=== PATIENT | female | born 1975 | race Hispanic/Latino ===

== ENCOUNTER 2024-06-20 09:11 | Inpatient (IN) | payer BC ==
--- OUTSIDE RECORDS SUMMARY | 2024-06-20 09:14 | XMS REPORT | Continuity of Care Document ---
Author Name Unknown Address [address] [facility] [address] [place] [address] [facility] thconnect Address [address] [facility] [address] [place] [address] Care Team Providers Care Gear Repair Supervisor Name Role Phone Grant Niño MD Primary Care Physician [phone] JEMIMA HOFFMAN Attending Clinician Unavailable Grant Niño MD Attending Clinician [phone] GRANT NIÑO Attending Clinician Unavailable [facility] Attending Clinician Unafransisca glover Doctor Unassigned, Lexa Attending Clinician U navailable Mary Anne November Attending Clinician Unavailab MARY Ferrara Attending Clinician Unavailable Mary Tanner MD Attending Clinician [phone] ROCHELLE_NAVI_Naif_Martín Attending Clinician Unavail able Yazmin Disla Attending Clinician [phone] MARY TANNER Attending Clinician Unavail able Vaccine, Ang Db Cbc Fam Attending Clinician Unav ailable Lab, Ang - Db Attending Clinician Unavailable Yazmin Disla Attending Clinician UnavailLisa Lutz Attending Clinician LISA MELENDEZ Attending Clinician Unavailable RADIOLOGY Attending Clinician Unavailable MOLLY REYES Attending Clinician Unavailable ADELINA BENEDICT Attending Clinician Unavailab le JESSICA, MARY Admitting Clinician Unavailable GC_S[facility]_Naif_H Admitting Clinician Unavail able Yazmin Disla Admitting Clinician UnavailADELINA Mojica Admitting Clinician Unavailab le Payers Payer Name Policy Type Policy Number Effective Date Expirati on Date Source [employer] PPO [id number] 2015 00:00:00 [place] [id number] 2014 00:00:00 [place] [id number] 2015 00:00:00 Problems Condition Name Condition Details Condition Category Status Onset Date Resolution Date Last Treatment Date Treating Clinician Comments Source Fatty liver Fatty liver Disease Active 2018-08 00:00: 00 [facility] Anemia Anemia Disease Active 2018-08 00:00: 00 [facility] Right sided abdominal pain Right sided abdominal pain Disease Active 2015-08 00:00: 00 [facility] Acute right-side d low back pain without sciatica Acute right-side d low back pain without sciatica Disease Active 2015-08 00:00: 00 [facility] Lower extremity pain, right Lower extremity pain, right Disease Active 2015-08 00:00: 00 [facility] Myalgia Myalgia Disease Active 2015-08 00:00: 00 [facility] Axillary pain, right Axillary pain, right Disease Active 2015-08 00:00: 00 [facility] Numbness Numbness Disease Active 2015-08 00:00: 00 [facility] Type 2 diabetes mellitus without complicati on, without long-term current use of insulin Type 2 diabetes mellitus without complicati on, without long-term current use of insulin Disease Active 2015-08 00:00: 00 [facility] Blood in stool Blood in stool Disease Active 05-19 00:00: 00 [facility] Epigastric pain Epigastric pain Disease Active 05-19 00:00: 00 [facility] Type 2 diabetes mellitus without complicati on Type 2 diabetes mellitus without complicati on Disease Active 2014-08 00:00: 00 [facility] Reflux esophagiti s Reflux esophagiti s Disease Active 2014-08 00:00: 00 [facility] No known active problems No known active problems Disease [facility] Allergies, Adverse Reactions, Alerts Allergy Name Allergy Type Status Severity Reaction(s) Onset Date Inactive Date Treating Clinician Comments Source Penicill ins DA Active SV SHORTNESS OF BREATH, RASH AND "BLOOD VESSELS POP IN EYES" 2020-08 00:00: 00 [facility] penicill amine DA Active SV SHORTNESS OF BREATH, RASH AND "BLOOD VESSELS POP IN EYES" 2020-08 00:00: 00 [facility] Penicill ins Propensi ty to adverse reaction s Active Unknown - See comments 2014-08 00:00: 00 SOB, swelling [facility] PENICILL INS Drug Class Active Unknown-Cmnt 2014-08 00:00: 00 [facility] Penicill ins Propensi ty to adverse reaction s Active Other - See comments 2014-08 00:00: 00 SOB, swelling [facility] Penicill ins Propensi ty to adverse reaction s Active Other 2014-08 00:00: 00 SOB, swelling [facility] Social History Social Habit Start Date Stop Date Quantity Comments Source [facility] History of tobacco use Cigarette Smoker [facility] History of Social function 2023-07-26 00:00:00 2023-07-26 00:00:00 [facility] Tobacco use and exposure 2023-07-26 00:00:00 2023-07-26 00:00:00 Smokeless tobacco non-user [facility] Tobacco Comment 2023-07-26 00:00:00 2023-07-26 00:00:00 socially [facility] Exposure to SARS-CoV-2 (event) 2022-03-28 00:00:00 2022-04-07 16:10:00 Not sure [facility] Alcohol intake 2021-09-27 00:00:00 2021-09-27 00:00:00 .14 /d [facility] Sex Assigned At 1975 00:00:00 1975 00:00:00 [facility] Smoking Status Start Date Stop Date Source Ex-smoker 2023-07-26 00:00:00 2023-07-26 00:00:00 [facility] Smokes tobacco daily 2021-05-25 00:00:00 [facility] Occasional tobacco smoker 2019-07-19 00:00:00 [facility] Medications Ordered Medication Name Filled Medication Name Start Date Stop Date Current Medication? Ordering Clinician Indication Dosage Frequency Signature (SIG) Comments Components Source terbinafine HCL 250 mg tablet 2022-08 00:00: 00 Yes [id number] 250mg Take 1 tablet by mouth in the morning. [facility] 0.01% (0.1 mg/gram) vaginal cream Insert 0.5 g twice a week by vaginal route at bedtime. estradiol 0.01% (0.1 mg/gram) vaginal cream Insert 0.5 g twice a week by vaginal route at bedtime. No .5g Q3.5D estradiol 0.01% (0.1 mg/gram) vaginal cream Insert 0.5 g twice a week by vaginal route at bedtime. [facility] fluconazole 150 mg tablet TAKE 1 TABLET BY MOUTH EVERY DAY FOR 1 DAY fluconazole 150 mg tablet TAKE 1 TABLET BY MOUTH EVERY DAY FOR 1 DAY No fluconazol e 150 mg tablet TAKE 1 TABLET BY MOUTH EVERY DAY FOR [address] [facility] gabapentin 300 mg capsule TAKE 1 CAPSULE BY MOUTH THREE TIMES A DAY gabapentin 300 mg capsule TAKE 1 CAPSULE BY MOUTH THREE TIMES A DAY No gabapentin 300 mg capsule TAKE 1 CAPSULE BY MOUTH THREE TIMES A DAY [facility] gi-(pruritu s 1)[]hydroco rt2.5%/ lido5% APPLY 1 to 2 grams TO AFFECTED AREA 3 to 4 times A day gi-(pruritu s 1)[]hydroco rt2.5%/ lido5% APPLY 1 to 2 grams TO AFFECTED AREA 3 to 4 times A day No gi-(prurit us 1)[]hydroc ort2.5%/ lido5% APPLY 1 to 2 grams TO AFFECTED AREA 3 to 4 times A day [facility] hydrocodone 10 mg-acetamin ophen 325 mg tablet TAKE 1 TABLET BY MOUTH EVERY DAY hydrocodone 10 mg-acetamin ophen 325 mg tablet TAKE 1 TABLET BY MOUTH EVERY DAY No hydrocodon e 10 mg-acetami nophen 325 mg tablet TAKE 1 TABLET BY MOUTH EVERY DAY [facility] hydrocodone 5 mg-acetamin ophen 325 mg tablet TAKE 1 TABLET BY MOUTH EVERY 4 HOURS NEEDED hydrocodone 5 mg-acetamin ophen 325 mg tablet TAKE 1 TABLET BY MOUTH EVERY 4 HOURS NEEDED No hydrocodon e 5 mg-acetami nophen 325 mg tablet TAKE 1 TABLET BY MOUTH EVERY [address] [facility] ketorolac 10 mg tablet PLEASE SEE ATTACHED FOR DETAILED DIRECTIONS ketorolac 10 mg tablet PLEASE SEE ATTACHED FOR DETAILED DIRECTIONS No ketorolac 10 mg tablet PLEASE SEE ATTACHED FOR DETAILED DIRECTIONS [facility] methocarbam ol 500 mg tablet TAKE 1 TABLET BY MOUTH THREE TIMES A DAY FOR 10 DAYS methocarbam ol 500 mg tablet TAKE 1 TABLET BY MOUTH THREE TIMES A DAY FOR 10 DAYS No methocarba mol 500 mg tablet TAKE 1 TABLET BY MOUTH THREE TIMES A DAY FOR [address] [facility] nitrofurant oin monohydrate /macrocryst als 100 mg capsule TAKE 1 CAPSULE BY MOUTH EVERY 12 HOURS FOR 7 DAYS nitrofurant oin monohydrate /macrocryst als 100 mg capsule TAKE 1 CAPSULE BY MOUTH EVERY 12 HOURS FOR 7 DAYS No nitrofuran toin monohydrat e/macrocry stals 100 mg capsule TAKE 1 CAPSULE BY MOUTH EVERY 12 HOURS FOR [address] [facility] ciprofloxac in 500 mg tablet TAKE ONE TABLET BY MOUTH TWICE DAILY FOR 10 DAYS ciprofloxac in 500 mg tablet TAKE ONE TABLET BY MOUTH TWICE DAILY FOR 10 DAYS No ciprofloxa marco 500 mg tablet TAKE ONE TABLET BY MOUTH TWICE DAILY FOR [address] [facility] Clenpiq 10 mg-3.5 gram-12 gram/160 mL oral solution TAKE BY MOUTH DIRECTED Clenpiq 10 mg-3.5 gram-12 gram/160 mL oral solution TAKE BY MOUTH DIRECTED No Clenpiq 10 mg-3.5 gram-12 gram/160 mL oral solution TAKE BY MOUTH DIRECTED [facility] diazepam 5 mg tablet TAKE 1 TABLET BY MOUTH EVERY DAY NEEDED FOR ANXIETY diazepam 5 mg tablet TAKE 1 TABLET BY MOUTH EVERY DAY NEEDED FOR ANXIETY No diazepam 5 mg tablet TAKE 1 TABLET BY MOUTH EVERY DAY NEEDED FOR ANXIETY [facility] docusate sodium 100 mg capsule TAKE 1 CAPSULE BY MOUTH EVERY 12 HOURS docusate sodium 100 mg capsule TAKE 1 CAPSULE BY MOUTH EVERY 12 HOURS No docusate sodium 100 mg capsule TAKE 1 CAPSULE BY MOUTH EVERY 12 HOURS [facility] Santyl 250 unit/gram topical ointment APPLY TOPICALLY TO THE AFFECTED AREA ONCE DAILY. Santyl 250 unit/gram topical ointment APPLY TOPICALLY TO THE AFFECTED AREA ONCE DAILY. No Santyl 250 unit/gram topical ointment APPLY TOPICALLY TO THE AFFECTED AREA ONCE DAILY. [facility] sulfamethox azole 800 mg-trimetho prim 160 mg tablet TAKE 1 TABLET BY MOUTH TWICE DAILY sulfamethox azole 800 mg-trimetho prim 160 mg tablet TAKE 1 TABLET BY MOUTH TWICE DAILY No sulfametho xazole 800 mg-trimeth oprim 160 mg tablet TAKE 1 TABLET BY MOUTH TWICE DAILY [facility] Clenpiq 10 mg-3.5 gram-12 gram/160 mL oral solution TAKE BY MOUTH DIRECTED Clenpiq 10 mg-3.5 gram-12 gram/160 mL oral solution TAKE BY MOUTH DIRECTED No Clenpiq 10 mg-3.5 gram-12 gram/160 mL oral solution TAKE BY MOUTH DIRECTED [facility] gi-(pruritu s 1)[]hydroco rt2.5%/ lido5% APPLY 1 to 2 grams TO AFFECTED AREA 3 to 4 times A day gi-(pruritu s 1)[]hydroco rt2.5%/ lido5% APPLY 1 to 2 grams TO AFFECTED AREA 3 to 4 times A day No gi-(prurit us 1)[]hydroc ort2.5%/ lido5% APPLY 1 to 2 grams TO AFFECTED AREA 3 to 4 times A day [facility] hydrocodone 10 mg-acetamin ophen 325 mg tablet TAKE 1 TABLET BY MOUTH EVERY DAY hydrocodone 10 mg-acetamin ophen 325 mg tablet TAKE 1 TABLET BY MOUTH EVERY DAY No hydrocodon e 10 mg-acetami nophen 325 mg tablet TAKE 1 TABLET BY MOUTH EVERY DAY [facility] Colace 100 mg capsule Take 1 capsule every 12 hours by oral route. Colace 100 mg capsule Take 1 capsule every 12 hours by oral route. No 1capsul e(s) Q12H Colace 100 mg capsule Take 1 capsule every 12 hours by oral route. [facility] fluconazole 150 mg tablet TAKE 1 TABLET BY MOUTH EVERY DAY FOR 1 DAY fluconazole 150 mg tablet TAKE 1 TABLET BY MOUTH EVERY DAY FOR 1 DAY No fluconazol e 150 mg tablet TAKE 1 TABLET BY MOUTH EVERY DAY FOR 1 DAY [facility] gabapentin 300 mg capsule TAKE 1 CAPSULE BY MOUTH THREE TIMES DAILY FOR 10 DAYS gabapentin 300 mg capsule TAKE 1 CAPSULE BY MOUTH THREE TIMES DAILY FOR 10 DAYS No gabapentin 300 mg capsule TAKE 1 CAPSULE BY MOUTH THREE TIMES DAILY FOR 10 DAYS [facility] hydrocodone 5 mg-acetamin ophen 325 mg tablet TAKE 1 TABLET BY MOUTH EVERY 4 HOURS NEEDED hydrocodone 5 mg-acetamin ophen 325 mg tablet TAKE 1 TABLET BY MOUTH EVERY 4 HOURS NEEDED No hydrocodon e 5 mg-acetami nophen 325 mg tablet TAKE 1 TABLET BY MOUTH EVERY 4 HOURS NEEDED [facility] nitrofurant oin monohydrate /macrocryst als 100 mg capsule TAKE 1 CAPSULE BY MOUTH EVERY 12 HOURS FOR 7 DAYS nitrofurant oin monohydrate /macrocryst als 100 mg capsule TAKE 1 CAPSULE BY MOUTH EVERY 12 HOURS FOR 7 DAYS No nitrofuran toin monohydrat e/macrocry stals 100 mg capsule TAKE 1 CAPSULE BY MOUTH EVERY 12 HOURS FOR 7 DAYS [facility] Colace 100 mg capsule Take 1 capsule every 12 hours by oral route. Colace 100 mg capsule Take 1 capsule every 12 hours by oral route. No 1capsul e(s) Q12H Colace 100 mg capsule Take 1 capsule every [address] [facility] Immunizations Ordered Immunization Name Filled Immunization Name Date Status Comments Source SARS-COV-2 COVID-19 PFIZER JADE-SUCROSE VACCINE (HICKS TOP) 2022-04-07 00:00:00 Completed [facility] SARS-COV-2 COVID-19 PFIZER JADE-SUCROSE VACCINE (HICKS TOP) 2022-04-07 00:00:00 Completed [facility] SARS-COV-2 COVID-19 PFIZER JADE-SUCROSE VACCINE (HICKS TOP) 2022-03-15 00:00:00 Completed [facility] SARS-COV-2 COVID-19 PFIZER JADE-SUCROSE VACCINE (HICKS TOP) 2022-03-15 00:00:00 Completed [facility] SARS-COV-2 COVID-19 PFIZER JADE-SUCROSE VACCINE (HICKS TOP) 2022-03-15 00:00:00 Completed [facility] TDAP 2021-08-03 00:00:00 Completed [facility] TDAP 2021-08-03 00:00:00 Completed [facility] TDAP 2021-08-03 00:00:00 Completed [facility] TDAP 2021-08-03 00:00:00 Completed [facility] TDAP Unknown Completed [facility] SARS-COV-2 COVID-19 PFIZER JADE-SUCROSE VACCINE (HICKS TOP) Unknown Completed [facility] TDAP Unknown Completed [facility] SARS-COV-2 COVID-19 PFIZER JADE-SUCROSE VACCINE (HICKS TOP) Unknown Completed [facility] TDAP Unknown Completed [facility] SARS-COV-2 COVID-19 PFIZER JADE-SUCROSE VACCINE (HICKS TOP) Unknown Completed [facility] Vital Signs Vital Name Observation Time Observation Value Comments S our Systolic blood pressure 2023-07-26 19:25:00 122 mm[Hg] [facility] Diastolic blood pressure 2023-07-26 19:25:00 82 mm[Hg] [facility] Heart rate 2023-07-26 19:25:00 79 /min [facility] Body height 2023-07-26 19:25:00 154.9 cm [facility] Body weight 2023-07-26 19:25:00 76.4 kg [facility] BMI 2023-07-26 19:25:00 31.82 kg/m2 [facility] Oxygen saturation in Arterial blood by Pulse oximetry 2023-07-26 19:25:00 97 /min [facility] Height 2022-04-26 00:00:00 62 [in_i] [facility] BMI (Body Mass Index) 2022-04-26 00:00:00 25.2 kg/m2 [facility] Body Weight 2022-04-26 00:00:00 138 [lb_av] [facility] Systolic blood pressure 2022-02-09 17:49:00 114 mm[Hg] [facility] Diastolic blood pressure 2022-02-09 17:49:00 73 mm[Hg] [facility] Heart rate 2022-02-09 17:49:00 91 /min [facility] Body height 2022-02-09 17:49:00 154.9 cm [facility] Body weight 2022-02-09 17:49:00 65.998 kg [facility] BMI 2022-02-09 17:49:00 27.49 kg/m2 [facility] BP Diastolic 2021-11-08 00:00:00 77 mm[Hg] [facility] Height 2021-11-08 00:00:00 62 [in_i] [facility] BMI (Body Mass Index) 2021-11-08 00:00:00 26.7 kg/m2 [facility] BP Systolic 2021-11-08 00:00:00 122 mm[Hg] [facility] Body Weight 2021-11-08 00:00:00 145.8 [lb_av] [facility] BP Diastolic 2021-10-13 00:00:00 86 mm[Hg] [facility] Height 2021-10-13 00:00:00 62 [in_i] [facility] BMI (Body Mass Index) 2021-10-13 00:00:00 26.2 kg/m2 [facility] BP Systolic 2021-10-13 00:00:00 132 mm[Hg] [facility] Body Weight 2021-10-13 00:00:00 143 [lb_av] [facility] BP Diastolic 2021-09-01 00:00:00 75 mm[Hg] [facility] BP Systolic 2021-09-01 00:00:00 111 mm[Hg] [facility] Body Weight 2021-09-01 00:00:00 144 [lb_av] [facility] Systolic blood pressure 2021-05-25 19:16:00 110 mm[Hg] [facility] Diastolic blood pressure 2021-05-25 19:16:00 77 mm[Hg] [facility] Heart rate 2021-05-25 19:16:00 70 /min [facility] Body temperature 2021-05-25 19:16:00 36.5 Matilda [facility] Body height 2021-05-25 19:16:00 154.9 [facility] Body weight 2021-05-25 19:16:00 64[facility]864 [facility] BMI 2021-05-25 19:16:00 27.02 kg[facility]m2 [facility] Procedures Procedure Date / Time Performed Performing Clinicia n Source ASSIGNMENT OF BENEFITS 2023-07-25 16:44:37 Docto r Unassigned, Lexa [facility] US ABDOMEN LIMITED 2022-05-05 22:30:00 [facility] SARS-COV-2 COVID-19 VACCINE 12 YRS+,0.3ML,IM (PFIZER - HICKS TOP) 2022-04-07 21:43:05 Doctor Unassigned, Lexa [facility] SARS-COV-2 COVID-19 VACCINE 12 YRS+,0.3ML,IM (PFIZER - HICKS TOP) 2022-03-15 21:45:05 Doctor Unassigned, Lexa [facility] Plan of Care Planned Activity Planned Date Details Comments Source Diagnostic Test Pending 2021-09-01 00:00:00 culture, urine [code = culture, urine] [facility] Diagnostic Test Pending 2021-09-01 00:00:00 urinalysis, complete [code = urinalysis, complete] [facility] Encounters Start Date/Time End Date/Time Encounter Type Admission Type Attending [facility] Care Facility Care Department Encounter ID Source 2022-06-14 07:35:00 [id number] 2022-01-11 10:08:06 [facility] [id number] [facility] 2021-10-21 13:54:01 Outpatient [facility] [id number] [facility] 2021-09-24 10:13:00 [facility] [id number] [facility] 2021-09-20 11:56:25 Outpatient YASMIN JEMIMA [facility] [id number] [facility] 2021-09-01 09:36:20 Outpatient YASMIN JEMIMA [facility] [id number] [facility] 2021-07-06 16:33:42 Outpatient JEMIMA HOFFMAN [facility] [id number] [facility] 2021-04-28 15:52:36 Outpatient JEMIMA HOFFMAN [facility] [id number] [facility] 2024-01-03 07:30:00 2024-01-03 07:30:00 Outpatient R [facility] [id number] [facility] 2024-01-01 07:45:00 2024-01-01 07:45:00 Outpatient R [facility] [id number] [facility] 2023-07-26 13:30:00 2023-07-26 14:00:00 Office Visit Grant Niño [facility] SHANIQUE [facility] [id number]..840.114 [id number] [id number] [id number] [facility] 2023-07-26 13:30:00 2023-07-26 13:30:00 Outpatient R GRANT NIÑO [facility] [id number] [facility] 2023-07-25 10:30:00 2023-07-25 10:30:00 Outpatient R ABNER [facility] [id number] [facility] 2023-07-25 00:00:00 2023-07-25 00:00:00 Orders Only Doctor Unassigned, Lexa [facility] [id number] 350.1.13.10 [id number] [id number] [facility] 2023-07-13 00:00:00 2023-07-13 00:00:00 Pre Visit Outreach [facility] [place] 1..840.114 350.1.13.10 [id number] [id number] [facility] 2022-05-05 16:48:00 2022-05-05 23:59:00 Outpatient R MARY TANNER [facility] [id number] [facility] 2022-05-05 16:48:00 2022-05-05 23:59:00 Hospital Encounter Mary Tanner [facility] [id number] 350.1.13.10 [id number] [id number] [facility] 2022-04-26 00:00:00 2022-04-26 00:00:00 Outpatient [facility] _Naif_H [facility] [id number] [facility] 2022-04-26 00:00:00 2022-04-26 00:00:00 Yazmin Disla MD: [address], [address], [place] [address] , Ph. [phone] [facility] - GC_PAMELLAPRRosenda _[facility] Office* [id number] [facility] 2022-04-26 00:00:00 2022-04-26 00:00:00 Outpatient Yazmin Disla [facility] [id number] 2022-04-21 10:04:00 2022-04-21 10:04:00 [facility] [id number] [facility] 2022-03-15 12:15:00 2022-04-13 23:59:00 [facility] [id number] 2022-04-07 16:20:00 2022-04-07 16:30:00 Imm/Inj Visit Vaccine, Ang Db Cbc Grant Claudio [facility] [id number] 350.1.13.10 [id number] [id number] [facility] 2022-04-07 16:20:00 2022-04-07 16:20:00 Outpatient GRANT VERAS [facility] [id number] [facility] 2022-03-15 16:20:00 2022-03-15 16:30:00 Imm/Inj Visit Vaccine, Ang Db Cbc [facility] [id number] 350.1.13.10 [id number] [id number] [facility] 2022-03-15 16:20:00 2022-03-15 16:20:00 Outpatient R GRANT NÑIO [facility] [id number] [facility] 2022-02-09 12:45:00 2022-02-09 13:00:00 Office Visit Madi [facility] JERED?[facility] [id number] 350.1.13.10 4.2.7.2.686 [id number] [facility] 2022-02-09 12:45:00 2022-02-09 12:45:00 Outpatient R GRANT NIÑO [facility] [id number] [facility] 2022-01-19 00:00:00 2022-01-19 00:00:00 Telephone Madi [facility] JERED?[facility] [id number] 350.1.13.10 4.2.7.2.686 [id number] [facility] 2021-12-23 00:00:00 2021-12-23 00:00:00 Letter (Out) [facility] [id number] 350.1.13.10 [id number] [id number] [facility] 2021-12-23 00:00:00 2021-12-23 00:00:00 Patient Secure Msg [facility] [id number] 350.1.13.10 4.2.7.2.686 [id number] [facility] 2021-12-22 07:45:00 2021-12-22 08:00:00 Technical Product Manager Visit Lab, Shukri - Eddie Niño Grant [facility] [id number] 350.1.13.10 [id number] [id number] [facility] 2021-12-22 07:45:00 2021-12-22 07:45:00 Outpatient GRANT VERAS [facility] [id number] [facility] 2021-12-22 07:45:00 2021-12-22 07:45:00 Outpatient GRANT VERAS [facility] [id number] [facility] 2021-12-21 16:15:00 2021-12-21 16:15:00 Outpatient GRANT VERAS [facility] [id number] [facility] 2021-12-21 09:15:00 2021-12-21 09:15:00 Outpatient GRANT VERAS [facility] [id number] [facility] 2021-12-21 08:15:00 2021-12-21 09:04:44 Office Visit Madi Grant [facility] [id number] 350.1.13.10 [id number] [id number] [facility] 2021-12-21 08:15:00 2021-12-21 09:04:44 Outpatient GRANT VERAS [facility] [id number] [facility] 2021-12-21 08:15:00 2021-12-21 08:15:00 Outpatient GRANT VERAS [facility] [id number] [facility] 2021-12-21 07:15:00 2021-12-21 07:15:00 Outpatient GRANT VERAS [facility] [id number] [facility] 2021-11-10 00:00:00 2021-11-10 00:00:00 Outpatient [facility] _Fisher_H PRIV PRIV [id number] [facility] [facility] 2021-11-09 11:37:00 2021-11-09 11:37:00 Outpatient [facility] _Fisher_H PRIV PRIV [id number] [facility] 2021-11-08 12:46:00 2021-11-08 12:46:00 Outpatient [facility] _Fisher_H PRIV PRIV [id number] [facility] 2021-11-08 00:00:00 2021-11-08 00:00:00 Outpatient Lily Dislasridevi Maki PRIV PRIV [id number] 2021-11-08 00:00:00 2021-11-08 00:00:00 Yazmin Disla MD: [address], [address], [place] [address] , Ph. [phone] [facility] - [facility] _[place] Office* [id number] [facility] 2021-11-05 01:41:00 2021-11-05 01:41:00 Outpatient [facility] _Fisher_H PRIV PRIV [id number] [facility] 2021-10-14 10:16:00 2021-10-14 10:16:00 Outpatient [facility] _Fisher_H PRIV PRIV [id number] [facility] 2021-10-13 03:55:00 2021-10-13 03:55:00 Outpatient [facility] _Fisher_H PRIV PRIV [id number] [facility] 2021-10-13 00:00:00 2021-10-13 00:00:00 Outpatient Lily Dislasridevi Maki PRIV PRIV [id number] 2021-10-13 00:00:00 2021-10-13 00:00:00 Yazmin Disla MD: [address], [address], [place] [address] , Ph. [phone] [facility] - [facility] _[place] Office* [id number] [facility] 2021-10-11 04:19:00 2021-10-11 04:19:00 Outpatient [facility] _Thea [facility] PRIV [id number] [facility] 2021-09-23 09:45:00 2021-09-23 09:45:00 Outpatient GRANT VERAS [facility] [id number] [facility] 2021-09-20 11:15:00 2021-09-20 11:56:28 Office Visit Jemima Hoffman [facility] 2 1.2.840.114 350.1.13.58 9.2.7.2.686 [id number] [facility] 2021-09-03 15:45:00 2021-09-03 16:36:26 Office Visit Jemima Hoffman [facility] 2 1.2.840.114 350.1.13.58 9.2.7.2.686 [id number] [facility] 2021-09-02 03:38:00 2021-09-02 03:38:00 Outpatient [facility] _Thea [facility] PRIV [id number] [facility] 2021-09-01 03:22:00 2021-09-01 03:22:00 Outpatient [facility] _Thea [facility] PRIV [id number] [facility] 2021-09-01 00:00:00 2021-09-01 00:00:00 Outpatient Yazmin Disla [facility] PRIV [id number] 2021-09-01 00:00:00 2021-09-01 00:00:00 Yazmin Disla MD: [address], [address], [place] [address] , Ph. [phone] [facility] - [facility] _[place] Office* [id number] [facility] 2021-08-23 12:45:00 2021-08-23 12:45:00 Outpatient Mushtaq NIÑO [facility] [id number] [facility] 2021-08-18 12:14:00 2021-08-19 13:03:00 Inpatient Yazmin Douglas [facility] MED[facility]01 [id number] [facility] 2021-08-03 09:24:21 2021-08-03 10:53:22 Technical Product Manager Visit Lab, Shukri Melendez LisaOn license of [facility] JERED?CECILIA [facility] 1..840.114 350.1.13.10 4.2.7.2.686 [id number] [facility] 2021-08-03 08:00:44 2021-08-03 10:53:06 [facility] 1..840.114 350.1.13.10 4.2.7.2.686 [id number] [facility] 2021-08-03 08:00:00 2021-08-03 10:53:06 Outpatient R [facility] [id number] [facility] 2021-08-03 08:00:00 2021-08-03 10:53:06 Outpatient Mushtaq [facility]Z [facility] [id number] [facility] 2021-08-03 09:24:21 2021-08-03 09:39:21 Technical Product Manager Visit Lab, [facility] 1..840.114 350.1.13.10 4.2.7.2.686 [id number] [facility] 2021-08-03 00:00:00 2021-08-03 00:00:00 Orders Only Doctor Unassigned, Lexa [facility] 1.284.114 350.1.13.10 4.2.7.2.686 [id number] [facility] 2021-07-27 11:24:00 2021-07-27 11:24:00 Outpatient [facility] _Naif_H [facility] [id number] [facility] 2021-07-26 03:03:00 2021-07-26 03:03:00 Outpatient [facility] [id number] [facility] 2021-07-26 00:00:00 2021-07-26 00:00:00 Yazmin Disla MD: [address], [address], [place] [address] , Ph. [phone] [facility] - [facility] _[place] Office* [id number] [facility] 2021-07-26 00:00:00 2021-07-26 00:00:00 Outpatient Yazmin Disla [facility] [id number] 2021-07-06 14:30:16 2021-07-06 16:33:08 Office Visit Jemima Hoffman [facility] 1..840.114 350.1.13.58 9.2.7.2.686 [id number] [facility] 2021-06-28 08:30:00 2021-06-28 08:30:00 Outpatient GRANT VERAS [facility] [id number] [facility] 2021-06-21 00:00:00 2021-06-21 00:00:00 Orders Only Doctor Unassigned, Lexa [facility] 1..840.114 350.1.13.10 4.2.7.2.686 [id number] [facility] 2021-05-26 00:00:00 2021-05-26 00:00:00 Orders Only Doctor Unassigned, Lexa [facility] 1..840.114 350.1.13.10 4.2.7.2.686 [id number] [facility] 2021-05-25 14:05:02 2021-05-25 15:12:37 Office Visit Jemima Hoffman [place] 1..840.114 350.1.13.58 9.2.7.2.686 [id number] [facility] 2021-04-28 00:00:00 2021-04-28 00:00:00 [facility] 1..840.114 350.1.13.10 4.2.7.2.686 [id number] [facility] 2021-04-26 12:06:06 2021-04-26 12:21:06 Technical Product Manager [facility] 1..840.114 350.1.13.10 4.2.7.2.686 [id number] [facility] 2021-04-26 12:00:00 2021-04-26 12:00:00 Outpatient R [facility] [id number] [facility] 2021-04-26 00:00:00 2021-04-26 00:00:00 Patient Secure Msg Doctor Unassigned, Lexa [facility] 1..840.114 350.1.13.10 4.2.7.2.686 [id number] [facility] 2021-04-08 00:00:00 2021-04-08 00:00:00 Outpatient LISA CRUZ [facility] [id number] [facility] 2021-04-05 13:30:00 2021-04-05 13:30:00 Outpatient LISA CRUZ [facility] [id number] [facility] 2021-03-08 00:00:00 2021-03-08 00:00:00 Outpatient R RADIOLOGY [facility] [id number] [facility] 2021-03-01 00:00:00 2021-03-01 00:00:00 Outpatient R RADIOLOGY [facility] [id number] [facility] 2020-12-17 10:00:00 2020-12-17 10:00:00 Outpatient R JOSE NIÑOONY [facility] [id number] [facility] 2020-07-30 15:00:00 2020-07-30 15:00:00 Outpatient R REYES, LUCY [facility] [id number] [facility] 2020-07-22 08:00:00 2020-07-22 08:00:00 Outpatient Mushtaq MADI [facility] [id number] [facility] 2020-07-10 09:00:00 2020-07-10 09:00:00 Outpatient GRANT VERAS [facility] [id number] [facility] 2020-07-08 14:30:00 2020-07-08 14:30:00 Outpatient R ABNER KAISER [facility] [id number] [facility] 2020-03-05 17:00:00 2020-03-05 17:00:00 Outpatient R [facility] [id number] [facility] 2019-11-12 06:23:00 2019-11-13 18:07:00 Inpatient ADELINA BENEDICT TW [facility] 7501 MHT[facility] Results Test Description Test Time Test Comments Results Result Co mments Source [facility] Medical[facility]inal[facility] complete panel - [id number] 00:00:00* Test Item Value Reference Range Interpretation Comme nts Specific gravity of Urine (test code = 2965-2) 1.031 1.003-1.030 H pH of Urine (test code = 2756-5) 5.5 5.0-8.0 Protein [Presence] in Urine by Test strip (test code = 78068-5) negative negative Glucose [Presence] in Urine by Test strip (test code = 62258-4) negative negative Ketones [Presence] in Urine by Test strip (test code = 2514-8) trace negative A Urobilinogen [Units/volume] in Urine by Test strip (test code = 49824-6) 1.0 mg/dL 0.2-1.0 Bilirubin.total [Presence] i n Urine by Test strip (test code = 5770-3) small negative A Hemoglobin [Presence] in Uri ne by Test strip (test code = 5794-3) negative negative Nitrite [Presence] in Urine by Test strip (test code = 5802-4) negative negative Crystals [type] in Urine sediment by Light microscopy (test code = 5782-8) none none Leukocytes [#/area] in Urine sediment by Microscopy high power field (test code = 5821-4) 0-4 0-4 Erythrocytes [#/area] in Uri ne sediment by Microscopy high power field (test code = 21832-9) none seen none seen RBC casts [Presence] in Urin e sediment by Light microscopy (test code = 43522-2) none seen 0-1 Hyaline casts [Presence] in Urine sediment by Light microscopy (test code = 64638-7) 0-4 0-4 Epithelial cells [Presence] in Urine sediment by Light microscopy (test code = 45609-2) few none-few Granular casts [Presence] in Urine sediment by Light microscopy (test code = 59155-5) none seen 0-1 Bacteria [Presence] in Urine sediment by Light microscopy (test code = 61232-9) few none-few Leukocyte esterase [Presence ] in Urine by Test strip (test code = 5799-2) negative negative Color of Urine (test code = 5778-6) yellow yellow, straw, chris Character of Urine (test cod e = 02692-0) clear clear [id number] 16:54:00* Test Item Value Reference Range Interpretation Comme nts SURGICAL (test code = SR) R UN DATE: 08/25/21 [facility] PAGE 1 RUN TIME: 1654 Specimen Inquiry RUN USER: INTERFACE P ATIENT: ANA DIXON [facility]: [id number] AGE/SX: 46/F [facility] RE08[facility]21REG DR: Yazmin Disla MD : 75 BED: A DIS: 08/19/21 STATUS: DIS Marisa TLOC: SPEC #: [id number] RECD: 08/18/21 STATUS: SOUOlga REQ #: [id number] ROSI: 08/18/21- [facility] DR: Yazmin Disla MD ENTERED: 08/18/21 SP TYPE: SURGICAL OTHR DR: DOES_NOT KNOW Undefined ProviderORDERED: ANATOMIC SPEC/2, SPEC TRACK, 06339, 09675 COPIES TO: DOES_NOT KNOW Undefined Provider Yazmin Disla MD [address] [facility] [address] [place] [address] PROCEDURES: 90250 (08/18/21-1616) 77849 (08/18/21) TISSUES: A. UTERUS W/WO TUBES OVARIES NON NEOPLASTIC/PROLAPSE - UTERUS, CERVIX, TUBES B. HEMORRHOIDS FINAL DIAGNOSIS A. UTERUS AND FALLOPIAN TUBES, HYSTERECTOMY AND BILATERAL SALPINGECTOMY WITH FIMBRIECTOMY: - Cervix with reactive changes and Nabothian cysts - Secretory endometrium - Myometrium without abnormalities - Paratubal cyst, right fallopian tube - Detached fallopian tube segment including fimbriae, without abnormalities B. PERINEUM, HEMORRHOID, EXCISION: - Anorectal tissue and contiguous skin with chronic inflammation and venous ectasia - Focal acute inflammation, in transitional reactive epithelium GROSS DESCRIPTION The specimen is received in formalin labeled, "uterus cervix tubes" and consists of auterus with attached cervix and attached left fallopian tube weighing in total 149 g. Discrete ovaries are grossly not identified. The uterus measures 5.5 cm from superior toinferior, 6.2 cm from cornu to cornu and 4.5 cm from anterior to posterior. The elongatedpink-mari rubbery cervix measures 3.2 cm in length and averages from 3.2 up to 3.5 cm inoverall maximum diameter. The external os is probe patent measuring up to 0.4 cm ingreatest dimension. The attached left fallopian tube contains attached fimbria and measures4.5 cm in length and averages from 0.4 up to 0.6 cm in overall maximum diameter. The CONTINUED ON NEXT PAGE R UN DATE: 08/25/21 [facility] PAGE 2 RUN TIME: 1654 Specimen Inquiry RUN USER: INTERFACE S PEC #: [id number] PATIENT: ANA DIXON #[id number] (Continued) GROSS DESCRIPTION (Continued) specimen is bivalved along the anterior-posterior plane to reveal a pink-mari hemorrhagicendometrial cavity measuring up to 0.4 cm in greatest dimension. The smooth brown-tanmyometrium measures up to 3.5 cm in maximum thickness. The uterus is sectioned to revealno apparent submucosal, intramural or subserosal leiomyomas. The cervix is sectioned toreveal a pink-mari fleshy cut surface. Identified are multiple circumscribed fluid-filledNabothian cysts ranging in size from 0.4 up to 1.1 cm in greatest dimension. A discreteendometrial-endocervica l lesion is grossly not identified. Sectioning through the attachedleft fallopian tube reveals a pink-mari spongy cut surface. Identified is a singlefluid-filled paratubal cyst measuring up to 0.8 cm in greatest dimension. Received in thesame container is a separate segment of fallopian tube measuring 0.9 cm in length andaveraging from 0.4 up to 0.6 cm in overall maximum diameter. Attached fimbria is grosslynot identified. Sectioning through the detached fallopian tube reveals a pink-mari spongycut surface. The specimen is representatively sampled. Summary of sections: A1: Anterior cervix A2: Posterior cervixA 3-A4: Anterior endometrium myometriumA5-A6: Posterior endometrium myometriumA7: Fire Pot Operator cross-sections of the attached left fallopian tubeA 8: The entire separate detached fallopian tube serially sectioned B). The specimen is received in formalin labeled, "hemorrhoid" and consists of a singlebrown-mari markedly dilated segment wrinkled skin measuring 2.1 x 0.9 x 0.8 cm. Thespecimen is bisected to reveal a markedly fibrotic hemorrhagic cut surface. The specimenis entirely submitted in block B1 Technical component [facility] [address], [place] [address] Unless gross only, the diagnosis is based upon microscopic examination.Immunohistochemistr y: This test was developed and its performance characteristicsdetermined by this laboratory. It has not been approved nor does it need approval by [place] FDA. Appropriate positive and negative controls are reviewed and judged to beacceptable. This laboratory is certified under the Clinical Laboratory ImprovementAmendments (CLIA-88) as qualified to perform high complexity clinical laboratory testing. CLINICAL INFORMATION UTERINE PROLAPSE ------- Signed SIGNATURE ON FILE Rafael Haro 08/25/21 1654 END OF REPORT HGB [id number] 05:39:00* Test Item Value Reference Range Interpretation Comme nts HEMOGLOBIN (test code = HGB) 11.5 g/dL 10.1-13.8 N HEMATOCRIT (test code = HCT) 36.4 % 32.5-41.8 N COVID 19 Asymptomatic IH [id number] 19:44:00* Test Item Value Reference Range Interpretation Comme nts COVID 19 Asymptomatic IH AG (test code = COVNONPUIAG) NEGATIVE NEGATIVE This test has be en authorized only for the detection ofproteins from SARS-CoV-2, not for any other viruses orpathogens. Negative results should be treated as presumptive andconfirmed with a molecular assay, if necessary for patientmanagement. Negative results do not rule out COVID-19 andshould not be used as the sole basis for treatment orpatient management decisions, including infection controldecisions. Negative results should be considered in thecontext of a patient's recent exposures, history and thepresence of clinical signs and symptoms consistent withCOVID-19. This test has not been FDA cleared or approved; the test hasbeen authorized by FDA under an Emergency Use Authorization(EUA) for use by laboratories certified under the CLIA thatmeet the requirements to perform moderate, high or waivedcomplexity tests. This test is authorized for use at thePoint of Care (POC), i.e., in patient care settingsoperating under a CLIA Certificate of Waiver, Certificate ofCompliance, or Certificate of Accreditation. This test is only authorized for the duration of thedeclaration that circumstances exist justifying theauthorization of emergency use of in vitro diagnostic testsfor detection and/or diagnosis of COVID-19 under Hffvspx547(b)(1) of the Act, 21 U.S.C. 360bbb-3(b)(1), unless theauthorization is terminated or revoked sooner. Comments to Glove [employer]er: FOR RAPID AND IN-HOUSE COVID TESTSpecimen Comment: DO NOT SEND OUTBASIC METABOLIC [id number] 16:03:00* Test Item Value Reference Range Interpretation Comme nts SODIUM (test code = NA) 138 mEq/L 135-145 N POTASSIUM (test code = K) 3.7 mEq/L 3.5-5.0 N CHLORIDE (test code = CL) 105 mEq/L 100-115 N CARBON DIOXIDE (test code = CO2) 27 mEq/L 22-31 N ANION GAP (test code = GAP) 9.90 10-20 L GLUCOSE (test code = GLU) 76 mg/dL 65-110 N BLOOD UREA NITROGEN (test co de = BUN) 14 mg/dL 7-18 N GLOMERULAR FILTRATION RATE ( test code = GFR) 108 ml/min >60 N CREATININE (test code = CREAT) 0.6 mg/dL 0.5-1.0 N CALCIUM (test code = CA) 8.6 mg/dL 8.4-10.2 N URINALYSIS [id number] 15:45:00* Test Item Value Reference Range Interpretation Comme nts UA COLOR (test code = COLU) YELLOW YELLOW UA APPEARANCE (test code = APPU) CLEAR CLEAR UA GLUCOSE DIPSTICK (test co de = DGLUU) NEGATIVE NEG UA BILIRUBIN DIPSTICK (test code = BILU) NEGATIVE NEG UA KETONE DIPSTICK (test cod e = KETU) NEGATIVE NEG UA SPECIFIC GRAVITY (test co de = SGU) 1.023 1.001-1.035 N UA BLOOD DIPSTICK (test code = SCOTT) NEG NEG UA PH DIPSTICK (test code = GREG) 6.0 5-9 UA PROTEIN DIPSTICK (test co de = PROU) NEGATIVE NEG UA UROBILINIOGEN DIPSTICK (t est code = URO) 4.0 mg/dL NEG A UA NITRITE DIPSTICK (test co de = ALEXANDER) NEG NEG UA LEUKOCYTE ESTERASE DIPSTI CK (test code = LEUU) NEG NEG UA WBC (test code = WBCU) 0-2 #/hpf NONE SEEN UA RBC (test code = RBCU) 0-2 #/hpf NONE SEEN UA EPITHELIAL CELLS (test co de = EPIU) RARE #/HPF RARE-FEW UA MUCUS (test code = MUCU) RARE NONE SEEN URINE SAMPLE: CLEAN CATCHUR HCG [id number] 15:45:00* Test Item Value Reference Range Interpretation Comme nts UR HCG QUAL (test code = HCGQLU) NEGATIVE 1. Very dilute u rine specimens, as indicated by a lowspecific gravity, may not contain home office representative levels ofhCG. 2. False negative results may occur when the levels of hCGare below the sensitivity level of the test. If is still suspected, a first morningurine specimen should be collected 48 hours later andtested. URINE SAMPLE: CLEAN CATCHCBC W/AUTO [id number] 15:20:00* Test Item Value Reference Range Interpretation Comme nts WHITE BLOOD CELL (test code = WBC) 7.6 K/mm3 6.5-12.3 N RED BLOOD CELL (test code = RBC) 5.23 M/mm3 3.51-4.69 H HEMOGLOBIN (test code = HGB) 13.1 g/dL 10.1-13.8 N HEMATOCRIT (test code = HCT) 42.0 % 32.5-41.8 H MEAN CELL VOLUME (test code = MCV) 80.3 fL 84.6-96.6 L MEAN CELL HGB (test code = MCH) 25.0 pg 27.3-33.9 L MEAN CELL HGB CONCETRATION ( test code = MCHC) 31.2 gm/dL 32.0-34.2 L RED CELL DISTRIBUTION WIDTH (test code = RDW) 17.0 % 12.2-16.3 H PLATELET COUNT (test code = PLT) 219 K/mm3 134-363 N MEAN PLATELET VOLUME (test c ode = MPV) 11.0 fL 9.2-12.7 N NEUTROPHIL % (test code = NT%) 49.6 % 57.9-77.3 L LYMPHOCYTE % (test code = LY%) 40.6 % 14.5-29.7 H MONOCYTE % (test code = MO%) 6.7 % 3.6-10.2 N EOSINOPHIL % (test code = EO%) 2.0 % 0.0-3.0 N BASOPHIL % (test code = BA%) 0.8 % 0.1-0.9 N NEUTROPHIL # (test code = NT#) 3.8 K/mm3 LYMPHOCYTE # (test code = LY#) 3.1 K/mm3 MONOCYTE # (test code = MO#) 0.5 K/mm3 EOSINOPHIL # (test code = EO#) 0.15 K/mm3 BASOPHIL # (test code = BA#) 0.1 K/mm3 RBC MORPHOLOGY REQUIRED (clarisse t code = RBCM) NORMAL NORMAL PLATELET MORPHOLOGY REQUIRED (test code = PLTMR) NORMAL NORMAL urine [id number] 00:00:00* Test Item Value Reference Range Interpretation Comme nts urine culture (test code = u rine culture) see below performing lab: (test code = performing lab:) [facility] Date/Time Note Provider Source 2021-08-23 07:13:00 [id number] [place] [id number] PATIENT NAME: ANA DIXON ADMIT DATE: 08/18/21 ACCOUNT NO: [id number] [facility] AGE: 46 SEX: F ADMITTING PHYSICIAN: Yazmin Disla MD ATTENDING PHYSICIAN: Yazmin Disla MD OPERATION DATE: 08/18/2021 PREOPERATIVE DIAGNOSES: 1. Uterine prolapse. 2. Cystocele. 3. Rectocele. 4. Stress urinary incontinence. 5. Incomplete defecation. 6. Hemorrhoids. POSTOPERATIVE DIAGNOSES: 1. Uterine prolapse. 2. Cystocele. 3. Rectocele. 4. Stress urinary incontinence. 5. Incomplete defecation. 6. Hemorrhoids. PROCEDURES: 1. Total laparoscopic hysterectomy with bilateral salpingectomy. 2. Laparoscopic sacrocolpopexy (Restorelle Y-mesh). 3. Retropubic sling ([employer] Advantage Fit). 4. Anterior colporrhaphy. 5. Cystoscopy. 6. Posterior colporrhaphy. SURGEON: Yazmin Disla M.D. VOCATIONAL DIRECTOR: Dr. Hansen. ANESTHESIA: General. ESTIMATED BLOOD LOSS: 50 mL. COMPLICATIONS: None. PROCEDURE IN DETAIL: The patient was taken to the operating room where she was placed under general anesthesia. She was then prepared and draped in the normal sterile fashion in the dorsal lithotomy position. A Arriaza catheter was placed in the patient's bladder draining Pyridium-stained urine. The anterior lip of the cervical os was grasped with a single-tooth tenaculum and serially dilated. It was sounded to 7 cm. The blue tip was placed in the MICHELE manipulator and placed in the patient's cervical os, it was held in place with a 10 mL PATIENT NAME: ANA DIXON intrauterine balloon. Intravaginal occluder was inflated with 60 mL. An infraumbilical skin incision was made with a scalpel after the area was infiltrated with 0.25% Marcaine. The fascia was grasped with two Ac clamps and incised sharply. The peritoneum was entered bluntly. Stay sutures of 0 Vicryl, a 5 mm laparoscope was placed directly into the patient's abdomen, it was held in place using 0 Vicryl stay sutures. The abdomen was insufflated with carbon dioxide gas. A suprapubic 5 mm port, right and left lateral 5 mm ports were placed under direct visualization. The total laparoscopic hysterectomy and bilateral salpingectomy were then performed. The fallopian tubes were dissected free from the underlying mesosalpinx. The uteroovarian vasculature and round ligament were cauterized and incised using bipolar cautery and Harmonic scalpel. The bladder flap was created anteriorly. The uterine vasculature was cauterized with bipolar cautery and incised with the Harmonic scalpel. The uterus was then amputated along the metal cervical ring and delivered through the vagina. The vaginal cuff was closed in a single layer using a running suture of 2-0 V-Loc. The laparoscopic sacrocolpopexy was performed. The Candelario's dissector was placed within the vagina. The bladder was dissected free from the anterior vaginal wall. The rectovaginal septum was entered. The rectum dissected free from the posterior vaginal wall. A releasing incision was made in the peritoneum covering the sacral promontory and this incision was carried down to communicate with posterior vaginal incision. The Restorelle Y-mesh was placed in the patient's abdomen. It was held in place both anteriorly and posteriorly using three rows of suture, the distal row contained three interrupted sutures of 0 Wilmerding-Gigi. Apical row contained two running sutures of 2-0 V-Loc, one suture for anterior and one suture for posterior. The tail of the mesh was then applied to the anterior longitudinal ligament using three tacks of the 5 mm CapSure device. Excess mesh was trimmed. The peritoneum was reapproximated covering the mesh using two running sutures of 2-0 PDS. The abdomen was irrigated, viewed under low pressure, found to be hemostatic. The gas was removed. The ports were removed. The umbilical fascia was closed with 0 Vicryl. All skin incisions were closed with 4-0 Monocryl and Dermabond. The anterior colporrhaphy, retropubic sling, and cystoscopy were performed. The anterior vaginal wall was infiltrated with 0.25% Marcaine. A midline incision was made. The cut edges were retracted laterally. Dissection was carried out laterally to the pelvic sidewalls and apically to the vaginal cuff. A site specific anterior colporrhaphy was performed using multiple sutures of 2-0 PDS. Once the cystocele was completely reduced, the vaginal epithelium was minimally trimmed and repaired using 2-0 Monocryl. The urethral meatus was grasped with an Allis clamp. A midline incision was made. The cut edges were retracted laterally. Dissection was carried out laterally to the pubic bone. The first arm of the [employer] sling was placed through the right side of the dissection, it was angled superiorly and anteriorly piercing the rectus muscle and fascia and brought through the skin just to the right of midline. The same procedure was performed on the patient's left. Arriaza catheter was removed. A cystoscopy was performed. She was found to have no evidence of ureteral, urethral, or bladder injuries. No masses or lesions were seen within the bladder. She had vigorous efflux of Pyridium-stained urine from bilateral ureteral orifices. The cystoscope was removed. The mesh arms were brought through the suprapubic incisions until there was no tension beneath the mid urethra. The plastic sleeves were cut and removed securing the mesh into place. No tension was maintained between the mesh and mid urethra using a right angle clamp. Excess mesh was trimmed and suprapubic incisions were closed with PATIENT NAME: ANA DIXON Dermabond. The vaginal incision was closed with 2-0 PDS. The Arriaza catheter was replaced in the patient's bladder. The posterior colporrhaphy was performed. The posterior vaginal wall was infiltrated with 0.25% Marcaine. A midline incision was made. The cut edges were retracted laterally. Dissection was carried out laterally to the pelvic sidewalls and apically to the posterior mesh. A site specific posterior colporrhaphy was performed using multiple sutures of 2-0 PDS. Once the rectocele was completely reduced, the vaginal epithelium was minimally trimmed and repaired using 2-0 Monocryl. Rectal exam demonstrated no further evidence of rectocele, no suture or injury within the rectum. Vaginal packing was placed and she was awoken and taken to the recovery room in stable condition. Sponge, lap, and needle counts were correct x2. Dictated By: Yazmin Disla MD WT: OP:F.MIKAYLA/WOROJAS/NTS Conf#: [id number]/DID#: [id number] Authenticated by Yazmin Maki MD On 08/23/2021 01:38:03 PM at 0138 PATIENT NAME: ANA DIXON [facility] 2021-08-19 06:48:00 [facility] ([facility]) Clinical Note REPORT#:[id number] REPORT STATUS: Signed DATE:08/19/21 TIME: 0648 PATIENT: ANA DIXON UNIT #: [id number] ROOM/BED: [address] : 75 AGE: 46 SEX: F ATTEND: Yazmin Disla MD ADM AUTHOR: Yazmin Disla MD * ALL edits or amendments must be made on the electronic/computer document * Clinical Note Note: Laboratory Tests: 08/19 0500 Hematology Hgb (10.1 - 13.8 g/dL) 11.5 Hct (32.5 - 41.8 %) 36.4 Vital Signs: Date Time Temp Pulse Resp B/P B/P Pulse O2 O2 Flow FiO2 Mean Ox Delivery Rate 08/19 0358 98.2 76 17 98/64 75.6 98 08/19 0027 98.8 86 16 95/57 69.5 98 08/18 1930 Nasal 2 cannula 08/18 1921 98.6 100 16 107/80 0.0 100 Nasal 2 cannula 08/18 1754 98.1 103 16 120/70 86.9 100 08/18 1705 97 Nasal 2 cannula 08/18 1703 86 Room air 08/18 1700 97.4 98 16 111/69 100 Room air 08/18 1645 91 18 111/66 96 Room air 08/18 1630 102 18 99/60 100 Room air 08/18 1615 95 18 100/63 100 Simple 10 mask 08/18 1606 Simple 10 100 mask 08/18 1600 84 18 90/55 100 Simple 10 mask 08/18 1553 97.4 86 18 89/53 100 Simple 10 mask 08/19 0700 08/18 2300 08/18 1500 Intake Total 1700.00 1500.00 Output Total 900 250 Balance 800.00 1250.00 Intake, IV 900.00 1400.00 Intake, Oral 800 100 Output, 100 Estimated Blood Loss Output, Urine 900 150 Pt doing well this AM. Pain controlled. Ambulating. Jj diet. Voiding via arriaza. Denies vaginal bleeding. PE: Gen: NAD card: RRR Pulm: CTAB Abd: soft, NTTP Inc: c/d/i x4 Ext: no LE edema A/P: Ms. Dixon is a 46yo POD1 form TLH, BS, sacrocolpopexy, A/P colporrhaphy, sling, cystoscopy, doing well. 1. POD1 - hgb 11.5 - ambulating - jj diet - pain controlled - voiding via Arriaza. Adequate UOP Dispo: DC home at 1002 [facility] #:[id number] END OF REPORT [facility] 2021-08-18 16:05:00 [id number] [place], [place] [address] PATIENT NAME: ANA DIXON ADMIT DATE: 08/18/21 ACCOUNT NO: [id number] [facility] AGE: 46 SEX: F ADMITTING PHYSICIAN: Yazmin Disla MD ATTENDING PHYSICIAN: Yazmin Disla MD OPERATION DATE: 08/18/2021 PREOPERATIVE DIAGNOSIS: Internal, external hemorrhoids. POSTOPERATIVE DIAGNOSIS: Internal, external hemorrhoids. PROCEDURE PERFORMED: Examination under anesthesia, hemorrhoidectomy x1, ligation of internal hemorrhoids x3. SURGEON: Angie Hoffman MD VOCATIONAL DIRECTOR: None. ANESTHESIA: INDICATIONS: A 46-year-old woman recently seen and evaluated in outpatient setting and noted to have hemorrhoids with inflammation. Given her undergoing rectal prolapse repair with Dr. Yazmin Disla, she elected to proceed with hemorrhoidectomy at the same time. The risks, benefits, and alternatives were discussed with the patient. She elected to proceed with surgical intervention. PROCEDURE IN DETAIL: The patient was identified in the preoperative holding area. She was in the operating room. At the time of my arrival, she had undergone Dr. Disla's operative procedure. Please see her full dictated operative report for further details. At the conclusion of their procedure, the patient was placed in the high lithotomy position. Digital rectal exam was performed using a small and medium Hill-Felix retractor. A thorough anorectal evaluation was performed. There was noted to be a large right anterior prolapsing internal hemorrhoid with external component. The hemorrhoid was grasped. A V-shaped incision was created on the external skin and it continued internally dissecting the hemorrhoid off of the internal anal sphincter muscle. Once the apex of the hemorrhoidal column was identified, it was clamped and ligated and tied with 2-0 Vicryl sutures. The mucosal defect was then closed to the dentate line with a locking 2-0 Vicryl suture with a mucopexy up to the hemorrhoidal apex. At the dentate line, the suture was transitioned to the 3-0 chromic suture. The remainder of the mucosal defect was closed. There was similar hemorrhoids, internal component in the left posterior, right posterior, left anterior aspect of the anal canal. These were all suture ligated with 2-0 Vicryl suture. The hemorrhoidal column was ligated internally with a [id number] suture and a mucopexy was performed to the more proximal suture, fully ligating and pexying the hemorrhoidal complex cephalad. At the conclusion of the procedure, hemostasis was confirmed, 0.25% Marcaine was injected as a perianal and pudendal nerve block. A rectal PATIENT NAME: ANA DIXON Phenergan suppository was inserted per Dr. Disla's request. The patient was allowed to awake from anesthesia and transferred to the recovery room in stable condition. All needle, instrument, and sponge counts were correct x2. Dictated By: Jemima Hoffman MD WT: OP:FVIRGIE/SARA/TRAV Conf#: [id number]/DID#: [id number] Authenticated by Jemima Hoffman MD On 09/30/2021 11:09:35 AM at 1109 PATIENT NAME: ANA DIXON [facility] 2021-08-16 14:57:00 [id number] [place] [address] PATIENT NAME: ANA DIXON ADMIT DATE: ACCOUNT NO: [id number] ROOM NO: AGE: 46 SEX: F ADMITTING PHYSICIAN: ATTENDING PHYSICIAN: Yazmin Disla MD Order: [id number] Test Reason : PRE-OP Test Date/Time Stamp: MonAug 16 2021 14:57:03 Blood Pressure : / mmHG Vent. Rate : 064 BPM Atrial Rate : 064 BPM P-R Int : 134 ms QRS Dur : 080 ms QT Int : 414 ms P-R-T Axes : 050 055 052 degrees QTc Int : 427 ms Normal sinus rhythm Normal ECG No previous ECGs available Confirmed by MARY LYNCH MD ([id number]) on 08/16/2021 7:35:42 PM Referred By: Yazmin Disla Confirmed by:MARY LYNCH MD at 1935 PATIENT NAME: ANA DIXON [facility]
[2024-06-20 09:51] LABS: Specific Gravity < 1.005 (1.005-1.030); Urine Bilirubin NEGATIVE (Negative); Urine Blood Negative (Negative); Urine Clarity Clear (Clear); Urine Color Colorless (Yellow); Urine Glucose NEGATIVE (Negative); Urine Ketones NEGATIVE (Negative); Urine Microscopic Reflex YN NO UMIC; Urine Nitrite NEGATIVE (Negative); Urine Protein NEGATIVE (Negative); Urine Urobilinogen Normal (Normal)
[2024-06-20 10:25] LABS: Absolute Basophils 0.1 K/uL (0-0.5); Absolute Eosinophils 0.1 K/uL (0-0.5); Absolute Lymphocytes (CBC) 3.2 K/uL (0.7-4.9); Absolute Monocytes 1.2 K/uL (0.1-1.3); Absolute Neutrophil 10.2 K/uL (1.8-8.0); Basophils % 0.9 % (0-1.3); Eosinophils % 0.8 % (0-4.4); Hematocrit 43.5 % (36.0-45.0); Hemoglobin 14.3 g/dL (12.0-15.0); Lymphocytes % 21.5 % (15.3-44.8); MCHC 32.8 g/dL (32.0-36.0); MCV 82.3 fL (80-100); MPV 8.7 fL (7.6-11.3); Monocytes % 8.1 % (3.3-12.3); Neutrophils % 68.7 % (41.7-73.7); Nucleated Red Blood Cells % 0.1 % (0-0); Platelets 203 thou/uL (152-406); RBC Red Blood Cell Count 5.29 M/uL (3.86-4.86); Red Cell Distribution Width 12.1 % (12.1-15.2)
[2024-06-20] MEDS ORDERED: NA CHLORIDE 0.9% 1,000 ML ONE (10:27)
[2024-06-20] MEDS ORDERED: FAMOTIDINE 20 MG/2 ML VIAL IV ONE (10:27)
[2024-06-20] MEDS ORDERED: ONDANSETRON 4 MG/2 ML VIAL ONE (10:27)
--- NOTE | 2024-06-20 10:44 | RAD REPORT ---
EXAM: Right upper quadrant ultrasound. CLINICAL HISTORY: ABD PAIN COMPARISON: 07/31/2012 FINDINGS: Gallbladder: Cholelithiasis. Bile ducts: No intrahepatic or extrahepatic biliary dilatation. Common bile duct measures 3 mm. Limited imaging of the liver shows no concerning finding. IMPRESSION: Cholelithiasis without sonographic evidence of acute cholecystitis.
[2024-06-20] MEDS ORDERED: MORPHINE 4 MG/ML SYR ONE (10:47)
[2024-06-20 10:48] LABS: Albumin 3.4 g/dL (3.4-5.0); Albumin/Globulin Ratio 0.7 (1.1-1.8); Anion Gap 7.5 mEq/L (5.0-15.0); Globulin 4.8 g/dL (2.3-3.5); Potassium 3.5 mEq/L (3.5-5.1); Protein, Total 8.2 g/dL (6.4-8.2); Troponin High Sensitivity 3.3 pg/mL (<58.9)
--- NOTE | 2024-06-20 11:25 | RAD REPORT ---
EXAMINATION: CT ABDOMEN AND PELVIS WITH CONTRAST CLINICAL INDICATION: ABD PAIN TECHNIQUE: CT abdomen and pelvis was performed, after the administration of IV contrast, [facility]. Axial, sagittal and coronal reconstructions were obtained. One or more of the following dose reduction techniques were used: Automated exposure control, adjustment of the mA and k V according to patient size, and iterative reconstruction. Unless otherwise specified, incidental findings do not require dedicated imaging follow-up. COMPARISON: No prior exam. FINDINGS: LOWER CHEST: The visualized lung bases are clear. Gastric sleeve postsurgical changes. LIVER: Significant fatty liver with hepatomegaly present. No focal lesion or biliary dilitation. Cho lelithiasis. SPLEEN: Normal size. No focal lesion. PANCREAS: No mass, ductal dilation, or hua-pancreatic fluid. ADRENALS: Normal; no mass. KIDNEYS: Normal size and contour. No hydronephrosis. GASTROINTESTINAL TRACT: Moderate focally prominent inflammation is seen involving a segment of the he patic flexure of the colon measuring about 5 cm in length. There is a large medially located diverticulum present which appears inflamed. No abscess seen. Mild sigmoid diverticulosis. APPENDIX: Normal appendix. LYMPH NODES: No lymphadenopathy. MUSCULOSKELETAL: No acute or suspicious osseous abnormality. ADDITIONAL FINDINGS: None. IMPRESSION: 5 cm segment of the colon in the hepatic flexure region shows moderate surrounding inflammation and w all thickening without abscess. There is a prominent diverticulum noted in this location projecting medially. Findings may represent a focal acute diverticulitis. Given that malignancy can have a simil ar appearance, after appropriate therapy, colonoscopy would be recommended to directly visualize this region. Cholelithiasis. Moderate fatty liver.
[2024-06-20] MEDS ORDERED: METRONIDAZOLE 500mg IVPB 500 MG/100 ML BAG IV ONE (11:44)
[2024-06-20] MEDS ORDERED: HYDROMORPHONE HCL 1 MG/ML INJ ONE (11:44)
[2024-06-20] MEDS ORDERED: Levofloxacin 750mg IV 750 MG/150 ML BAG IV ONE (11:44)
[2024-06-20] MEDS: Levofloxacin 750mg IV 750 MG/150 ML BAG IV SCH (12:00)
[2024-06-20] MEDS ORDERED: CEFTRIAXONE 2000 MG/VIAL ONE (12:04)
--- NOTE | 2024-06-20 12:08 | ER ---
Nurse's Notes [facility] Name: Marlena Dixon Age: 49 yrs Sex: Female : 1975 Arrival Date: 06/20/2024 Time: 09:11 Bed 13 Private MD: Diagnosis: Diverticulitis of large intestine without perforation or abscess without bleeding;Elevated white blood cell count;Abdominal tenderness;Other cholelithiasis without obstruction Presentation: 06/20 09:32 Chief complaint: Patient states: RLQ pain and nausea that began 2 days ago. Coronavirus ss screen: Client denies travel out of the [place] in the last 14 days. Ebola Screen: Patient denies exposure to infectious person. Patient denies travel to an Ebola-affected area in the 21 days before illness onset. Initial Sepsis Screen: Does the patient meet any 2 criteria? No. Patient's initial sepsis screen is negative. Does the patient have a suspected source of infection? No. Patient's initial sepsis screen is negative. Risk Assessment: Do you want to hurt yourself or someone else? Patient reports no desire to harm self or others. Onset of symptoms was June 18, 2024. 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 - Infectious Disease History:: Denies. - Social history:: Smoking status: Patient denies any tobacco usage or history of. Screenin:02 [facility] ED Fall Risk Assessment (Adult) History of falling in the last 3 months, tm6 including since admission No falls in past 3 months (0 pts) Confusion or Disorientation No (0 pts) Intoxicated or Sedated No (0 pts) Impaired Gait No (0 pts) Mobility Assist Device Used No (0 pt) Altered Elimination No (0 pt) Score/Fall Risk Level 0 - 2 = Low Risk Oriented to surroundings, Maintained a safe environment, Educated pt \\T\\ family on fall prevention, incl call for assistance when getting out of bed. Abuse screen: Denies threats or abuse. Denies injuries from another. Nutritional screening: No deficits noted. Tuberculosis screening: No symptoms or risk factors identified. Assessment: 11:02 General: Appears in no apparent distress. Behavior is calm, cooperative. Pain: tm6 Complains of pain in right upper quadrant and right lower quadrant Pain currently is 8 out of 10 on a pain scale. Neuro: Level of Consciousness is awake, alert, obeys commands, Oriented to person, place, time, situation. Cardiovascular: Patient's skin is warm and dry. Respiratory: Airway is patent Respiratory effort is even, unlabored, Respiratory pattern is regular, symmetrical. GI: Abdomen is flat, non-distended, Bowel sounds present X 4 quads. Abd is soft Reports lower abdominal pain, upper abdominal pain. : No signs and/or symptoms were reported regarding the genitourinary system. EENT: No signs and/or symptoms were reported regarding the EENT system. Derm: No signs and/or symptoms reported regarding the dermatologic system. Musculoskeletal: No signs and/or symptoms reported regarding the musculoskeletal system. 11:57 Reassessment: No changes from previously documented assessment. Patient and/or family tm6 updated on plan of care and expected duration. Pain level reassessed. Patient is alert, oriented x 3, equal unlabored respirations, skin warm/dry/pink. Vital Signs: 09:32 BP 135 / 97; Pulse 90; Resp 16; Temp 98.4(O); Pulse Ox 99% on R/A; Weight 78.02 kg; ss Height 5 ft. 1 in. ; Pain 8/10; 11:02 BP 117 / 77; Pulse 90; Pulse Ox 98% on R/A; MAP 80 mmHg; Pain 8/10; tm6 11:57 Pain 6/10; tm6 14:24 BP 123 / 77; Pulse 90; Resp 19; Temp 98.4; Pulse Ox 93% on R/A; MAP 92 mmHg; Pain 8/10; tm6 09:32 Body Mass Index 32.50 (78.02 kg, 154.94 cm) ss 09:32 Pain Scale: Adult ss 11:02 Pain Scale: Adult tm6 11:57 Pain Scale: Adult tm6 14:24 Pain Scale: Adult tm6 ED Course: 09:13 Patient arrived in ED. mr 09:23 Toby Miranda MD is Attending Physician. brad 09:33 Triage completed. ss 09:33 Arm band placed on. ss 10:12 Mely Ervin, RN is Primary Nurse. db 10:12 Inserted saline lock: 20 gauge in left antecubital area, using aseptic technique. Blood db collected. Flushed with 10 mL NS. 10:13 Troponin High Sensitivity Sent. db 10:13 CBC with Diff Sent. db 10:13 CMP Sent. db 10:13 Lipase Sent. db 10:28 US Abdomen Limited In Process Unspecified. EDMS 11:01 EKG done, by ED staff, reviewed by Toby Miranda MD. tm6 11:02 Patient has correct armband on for positive identification. Placed in gown. Bed in low tm6 position. Call light in reach. Side rails up X 1. Provided Education on: use of call lam. Client placed on continuous cardiac and pulse oximetry monitoring. NIBP monitoring applied. staff certified nurse midwife on. Pulse ox on. NIBP on. Door closed. Noise minimized. Warm blanket given. Pillow given. 11:12 CT Abd/Pelvis - IV Contrast Only In Process Unspecified. EDMS 11:56 Laura Conde, RN is Primary Nurse. tm6 12:07 Chano Jimenez MD is Hospitalizing Provider. brad 12:43 1243 CM met with at the bedside in the ED exam room .Patient identified by ane name and . demographic sheet confirmed. Patient states she lives with her laron in a single story home. She reports that prior to admission, she performs ADLs independently. No DME, no HH, no home oxygen or other medical services at this time. NO MPOA in place. PCP is Dr. Grant Barraza. She wishes to return home and upon discharge. Mrs. Dixon asked if CM could call her Laron, (Person to Notify and Next of Kin) to inform him of her Dx, stating " I don't comprehend things like that". states Laron will transport her home when she is discharged. CM team will continue to follow and coordinate care during this hospital stay. 1540 CM reached out t Mr.Mike Dixon via telephone at [phone] and informed him of Dx and room number of patient. 14:26 No provider procedures requiring assistance completed. Patient admitted, IV remains in tm6 place. Administered Medications: 10:38 Drug: Famotidine IVP 20 mg IVP once; dilute with 10 mL 0.9% NaCl; give over 2 minutes tm6 Route: IVP; Site: left antecubital; 11:56 Follow up: Response: No adverse reaction tm6 10:38 Drug: Ondansetron IVP 4 mg IVP once; over 2 minutes Route: IVP; Site: left antecubital; tm6 11:57 Follow up: Response: No adverse reaction tm6 10:38 Drug: NS 0.9% IV 1000 ml IV at 1 bolus Per protocol; to be given as a bolus over 60 tm6 minutes Route: IV; Rate: 1 bolus; Site: left antecubital; 11:38 Follow up: Response: No adverse reaction; IV Status: Completed infusion; IV Intake: tm6 1000ml 10:53 Drug: morphine IVP or IV 4 mg IVP once over 4 mins Route: IVP; Infused Over: 4 mins; tm6 Site: left antecubital; 11:57 Follow up: Pain 610 Adult; Response: No adverse reaction tm6 11:57 Drug: metroNIDAZOLE IVPB 500 mg 100 ml IVPB at 200 ml/hr once over 30 mins Volume: 100 tm6 ml; Route: IVPB; Rate: 200 ml/hr; Infused Over: 30 mins; Site: left antecubital; 13:17 Follow up: IV Status: Completed infusion; IV Intake: 100ml tm6 11:57 Drug: HYDROmorphone IVP 1 mg IVP once Route: IVP; Site: left antecubital; tm6 13:17 Follow up: Response: No adverse reaction tm6 13:40 Drug: levofloxacin IVPB 750 mg 150 ml IVPB once over 90 mins Volume: 150 ml; Route: tm6 IVPB; Infused Over: 90 mins; Site: left antecubital; 14:27 Follow up: IV Status: Infusion continued upon admission tm6 13:40 Drug: Rocephin IV 2 grams IV at per protocol once; Given slow IV push per pharmarcy tm6 instructions Route: IV; Rate: per protocol; Site: left antecubital; 13:59 Follow up: Response: No adverse reaction; IV Status: Completed infusion; IV Intake: [id number] Medication: 11:02 VIS not applicable for this client. tm6 Intake: 11:38 IV: 1000ml; Total: 1000ml. tm6 13:17 IV: 100ml; Total: 1100ml. tm6 13:59 IV: 10ml; Total: 1110ml. tm6 Outcome: 12:08 Decision to Hospitalize by Provider. [facility] 14:26 Admitted to Med/surg accompanied by nurse, room 404, with chart, tm6 14:26 Condition: stable 14:26 Instructed on the need for admit, 14:26 Patient left the ED. tm6 Signatures: Dispatcher [employer] EDMS Toby Miranda MD MD cha Rivera, Jami, Reg Reg mr Aydee Weber, RN RN Mely Ervin RN RN db Masterson, Tawney, RN RN 6 Kathy Garcia RN RN ane Corrections: (The following items were deleted from the chart) 09:34 09:33 Allergies: No Known Allergies; [facility]
--- NOTE | 2024-06-20 12:09 | EDPHYS ---
Physician Documentation [facility] Name: Marlena Dixon Age: 49 yrs Sex: Female : 1975 Arrival Date: 06/20/2024 Time: 09:11 Bed 13 Private MD: ED Physician Toby Miranda HPI: 06/20 12:00 This 49 yrs old Female presents to ER via Ambulatory with complaints of brad Abdominal Pain, Nausea. 12:00 The patient presents to the emergency department with nausea, vomiting. 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 - Infectious Disease History:: Denies. - Social history:: Smoking status: Patient denies any tobacco usage or history of. ROS: 12:01 Constitutional: Negative for fever, chills, and weight loss, Eyes: Negative for injury, brad pain, redness, and discharge, ENT: Negative for injury, pain, and discharge, Neck: Negative for injury, pain, and swelling, Cardiovascular: Negative for chest pain, palpitations, and edema, Respiratory: Negative for shortness of breath, cough, wheezing, and pleuritic chest pain, Back: Negative for injury and pain, : Negative for injury, bleeding, discharge, and swelling, MS/Extremity: Negative for injury and deformity, Skin: Negative for injury, rash, and discoloration, Neuro: Negative for headache, weakness, numbness, tingling, and seizure, Psych: Negative for depression, anxiety, suicide ideation, homicidal ideation, and hallucinations, Allergy/Immunology: Negative for hives, rash, and allergies, Endocrine: Negative for neck swelling, polydipsia, polyuria, polyphagia, and marked weight changes, Hematologic/Lymphatic: Negative for swollen nodes, abnormal bleeding, and unusual bruising, 12:01 Abdomen/GI: Positive for abdominal pain, nausea and vomiting, abdominal cramps, of the right upper quadrant and right lower quadrant, Exam: 12:01 Constitutional: This is a well developed, well nourished patient who is awake, alert, brad and in no acute distress. Head/Face: Normocephalic, atraumatic. Eyes: Pupils equal round and reactive to light, extra-ocular motions intact. Lids and lashes normal. Conjunctiva and sclera are non-icteric and not injected. Cornea within normal limits. Periorbital areas with no swelling, redness, or edema. ENT: Nares patent. No nasal discharge, no septal abnormalities noted. Tympanic membranes are normal and external auditory canals are clear. Oropharynx with no redness, swelling, or masses, exudates, or evidence of obstruction, uvula midline. Mucous membranes moist. Neck: Trachea midline, no thyromegaly or masses palpated, and no cervical lymphadenopathy. Supple, full range of motion without nuchal rigidity, or vertebral point tenderness. No Meningismus. Chest/axilla: Normal chest wall appearance and motion. Nontender with no deformity. No lesions are appreciated. Cardiovascular: Regular rate and rhythm with a normal S1 and S2. No gallops, murmurs, or rubs. Normal PMI, no JVD. No pulse deficits. Respiratory: Lungs have equal breath sounds bilaterally, clear to auscultation and percussion. No rales, rhonchi or wheezes noted. No increased work of breathing, no retractions or nasal flaring. Back: No spinal tenderness. No costovertebral tenderness. Full range of motion. Pelvic Exam: Normal external genitalia. Speculum exam with closed cervical os, no discharge or bleeding noted. Bimanual exam with normal adnexa, no adnexal or cervical motion tenderness. Normal uterus. Female : Normal external genitalia. Skin: Warm, dry with normal turgor. Normal color with no rashes, no lesions, and no evidence of cellulitis. MS/ Extremity: Pulses equal, no cyanosis. Neurovascular intact. Full, normal range of motion. Neuro: Awake and alert, GCS 15, oriented to person, place, time, and situation. Cranial nerves II-XII grossly intact. Motor strength 5/5 in all extremities. Sensory grossly intact. Cerebellar exam normal. Normal gait. Psych: Awake, alert, with orientation to person, place and time. Behavior, mood, and affect are within normal limits. 12:01 Abdomen/GI: Inspection: abdomen appears normal, Bowel sounds: active, Palpation: moderate abdominal tenderness, in the epigastric area and right upper quadrant, Liver: no appreciated palpable abnormalities, Hernia: not appreciated, 12:08 ECG was reviewed by the Attending Physician. [facility] Vital Signs: 09:32 BP 135 / 97; Pulse 90; Resp 16; Temp 98.4(O); Pulse Ox 99% on R/A; Weight 78.02 kg; ss Height 5 ft. 1 in. ; Pain 8/10; 11:02 BP 117 / 77; Pulse 90; Pulse Ox 98% on R/A; MAP 80 mmHg; Pain 8/10; tm6 11:57 Pain 6/10; tm6 14:24 BP 123 / 77; Pulse 90; Resp 19; Temp 98.4; Pulse Ox 93% on R/A; MAP 92 mmHg; Pain 8/10; tm6 09:32 Body Mass Index 32.50 (78.02 kg, 154.94 cm) ss 09:32 Pain Scale: Adult ss 11:02 Pain Scale: Adult tm6 11:57 Pain Scale: Adult tm6 14:24 Pain Scale: Adult tm6 MDM: 09:23 Medical Screening Exam initiated [facility] 09:33 Medical Screening Exam initiated [facility] 12:02 Differential diagnosis: Nonspecific abd pain, gastritis, cholecystitis, pancreatitis, brad appendicitis, diverticulitis, viral gastroenteritis, gastroenteritis. Data reviewed: vital signs, nurses notes, lab test result(s), EKG, radiologic studies, CT scan. Consideration of Admission/Observation Patient was admitted/placed on observation. Escalation of care including admission/observation considered. I considered the following discharge prescriptions or medication management in the emergency department Medications were administered in the Emergency Department. See MAR. Independent interpretation of the following test(s) in the Emergency Department EKG: See my EKG interpretation above. Test considered but Not performed: MRI: NO MRCP. Historians other than the Patient: PT WELL INFORMED. Care significantly affected by the following chronic conditions: Diabetes, Obesity. Counseling: I had a detailed discussion with the patient and/or guardian regarding the historical points, exam findings, and any diagnostic results supporting the discharge/admit diagnosis, lab results, radiology results, the need for further work-up and treatment in the hospital. 06/20 09:25 Order name: CBC with Diff; Complete Time: 11:36 [facility] 06/20 09: Order name: CMP; Complete Time: 11:36 brad 06/20 09:25 Order name: Lipase; Complete Time: 11:36 [facility] 06/20 09:25 Order name: Urinalysis w/ reflexes; Complete Time: 11:36 [facility] 06/20 09:25 Order name: Troponin High Sensitivity; Complete Time: 11:36 [facility] 06/20 13:07 Order name: Urinalysis w/ reflexes EDMS 06/20 13:07 Order name: CBC with Automated Diff EDMS 06/20 13:07 Order name: CBC with Automated Diff EDMS 06/20 13:07 Order name: CBC with Automated Diff EDMS 06/20 13:07 Order name: CBC with Automated Diff EDMS 06/20 13:07 Order name: Comprehensive Metabolic Panel EDMS 06/20 13:07 Order name: Comprehensive Metabolic Panel EDMS 06/20 13:07 Order name: Comprehensive Metabolic Panel [facility] 06/20 13:07 Order name: Comprehensive Metabolic Panel EDMS 06/20 13:07 Order name: Lipid Profile [facility] 06/20 13:07 Order name: Lipid Profile [facility] 06/20 13:07 Order name: Magnesium [facility]RI 06/20 13:07 Order name: Magnesium [facility]RI 06/20 13:07 Order name: Magnesium EDMS 06/20 13:07 Order name: Magnesium [facility]RI 06/20 09:25 Order name: CT Abd/Pelvis - IV Contrast Only; Complete Time: 11:36 [facility] 06/20 10:04 Order name: US Abdomen Limited; Complete Time: 11:36 [facility] 06/20 09:25 Order name: EKG; Complete Time: 09:25 [facility] 06/20 13:07 Order name: CONS Physician Consult [facility] 06/20 09:25 Order name: IV Saline Lock; Complete Time: 10:13 [facility] 06/20 09:25 Order name: Labs collected and sent; Complete Time: 10:13 [facility] 06/20 09:25 Order name: EKG - Nurse/Tech; Complete Time: 11:01 [facility] EC:08 Rate is 89 beats/min. Rhythm is regular. QRS Energy is Normal. NE interval is normal. QRS brad interval is normal. QT interval is normal. T waves are Normal. No ST changes noted. Clinical impression: Normal ECG and No evidence of ischemia. Interpreted by me. Reviewed by me. Administered Medications: 10:38 Drug: Famotidine IVP 20 mg IVP once; dilute with 10 mL 0.9% NaCl; give over 2 minutes tm6 Route: IVP; Site: left antecubital; 11:56 Follow up: Response: No adverse reaction tm6 10:38 Drug: Ondansetron IVP 4 mg IVP once; over 2 minutes Route: IVP; Site: left antecubital; tm6 11:57 Follow up: Response: No adverse reaction tm6 10:38 Drug: NS 0.9% IV 1000 ml IV at 1 bolus Per protocol; to be given as a bolus over 60 tm6 minutes Route: IV; Rate: 1 bolus; Site: left antecubital; 11:38 Follow up: Response: No adverse reaction; IV Status: Completed infusion; IV Intake: tm6 1000ml 10:53 Drug: morphine IVP or IV 4 mg IVP once over 4 mins Route: IVP; Infused Over: 4 mins; tm6 Site: left antecubital; 11:57 Follow up: Pain 02/04 Adult; Response: No adverse reaction tm6 11:57 Drug: metroNIDAZOLE IVPB 500 mg 100 ml IVPB at 200 ml/hr once over 30 mins Volume: 100 tm6 ml; Route: IVPB; Rate: 200 ml/hr; Infused Over: 30 mins; Site: left antecubital; 13:17 Follow up: IV Status: Completed infusion; IV Intake: 100ml tm6 11:57 Drug: HYDROmorphone IVP 1 mg IVP once Route: IVP; Site: left antecubital; tm6 13:17 Follow up: Response: No adverse reaction tm6 13:40 Drug: levofloxacin IVPB 750 mg 150 ml IVPB once over 90 mins Volume: 150 ml; Route: tm6 IVPB; Infused Over: 90 mins; Site: left antecubital; 14:27 Follow up: IV Status: Infusion continued upon admission tm6 13:40 Drug: Rocephin IV 2 grams IV at per protocol once; Given slow IV push per pharmarcy tm6 instructions Route: IV; Rate: per protocol; Site: left antecubital; 13:59 Follow up: Response: No adverse reaction; IV Status: Completed infusion; IV Intake: [id number] Disposition Summary: 06/20/24 12:08 Hospitalization Ordered Notes: Hospitalization Status: Inpatient Admission brad Provider: Iwueke, Izuchukwu brad Location: Telemetry/MedSurg (Inpatient) brad Condition: Stable brad Problem: new brad Symptoms: have improved brad Bed/Room Type: Standard [facility] Room Assignment: 404(06/20/24 13:16) bc6 Diagnosis - Diverticulitis of large intestine without perforation or abscess without bleeding brad - Elevated white blood cell count brad - Abdominal tenderness brad - Other cholelithiasis without obstruction brad Forms: - Medication Reconciliation Form brad - SBAR form brad - Leadership Thank You Letter brad Signatures: Dispatcher [employer] EDRI Toby Miranda MD MD cha Blanchard, Shelby, RN RN Lois Hodges bc6 Laura Conde RN RN tm6 Corrections: (The following items were deleted from the chart) 09:34 09:33 Allergies: No Known Allergies; [facility] 09:51 09:25 Test, Urine+UC.LAB.BRZ ordered. EDRI EDMS 13:16 12:08 brad 6
--- NOTE | 2024-06-20 12:51 | P.HP ---
Certification for Inpatient Patient admitted to: Inpatient With expected LOS: >2 Midnights Patient will require the following post-hospital care: None Practitioner: I am a practitioner with admitting privileges, knowledge of patient current condition, hospital course, and medical plan of care. Services: Services provided to patient in accordance with Admission requirements found in Title 42 Section 412.3 of the Code of Federal Regulations <Divina Agarwal - Last Filed: 06/20/24 15:03> Patient History Date of Service: 06/20/24 Reason for admission: Diverticulitis, cholelithiasis History of Present Illness: Ms. Dioxn is a 49-year-old female with past medical history of diabetes and fatty liver. Status post gastric sleeve she is not taking any medicines and her blood sugar today is 125. She states she does usually have a bowel movement about 3 times daily and she has not had 1 since yesterday 06/19/2024. She denies nausea or vomiting but reports generalized abdominal pain with worsening over the left lower quadrant. CT imaging in the emergency department: CT abdomen and pelvis with contrast impression: "5 cm segment of the colon in the hepatic flexure region shows moderate surrounding inflammation and wall thickening without abscess. There is a prominent diverticulum noted in this location projecting me dially. Findings may represent a focal acute diverticulitis. Given that malignancy can have a similar appearance, after appropriate therapy, colonoscopy would be recommended to directly visualize this region. Cholelithiasis. Moderate fatty liver. Ultrasound evaluation shows cholelithiasis without sonographic evidence of acute cholecystitis. Only abnormal laboratory finding is a white count of 14.9 with no shift. Ms. Dixon will be admitted for IV hydration, IV antibiotics, and consultation with Dr. Castro. - Past Medical/Surgical History Has patient received pneumonia vaccine in the past: No Diabetic: Yes -: Diet-controlled diabetes -: Fatty liver -: Gastric sleeve -: Tummy tuck -: Partial hyst Psychosocial/ Personal History: - Family History Family History: Reviewed- Non-Contributory - Social History Smoking Status: Never smoker Alcohol use: Yes CD- Drugs: No Caffeine use: Yes Place of Residence: Home <Divina Agarwal - Last Filed: 06/20/24 15:03> Date of Service: 06/20/24 - Family History Mother -: Heart disease, Hypertension, Diabetes Notes: Triple bypass Father -: Diabetes <Chano Jimenez - Last Filed: 06/20/24 18:31> Allergies Penicillins Allergy (Verified 06/20/24 14:49) Hives/Rash Home Medications: NK [No Home Meds] 06/20/24 Review of Systems 10-point ROS is otherwise unremarkable General: Unremarkable Eyes: Unremarkable ENT: Unremarkable Respiratory: Unremarkable Cardiovascular: Unremarkable Gastrointestinal: Abdominal Pain Genitourinary: Unremarkable Musculoskeletal: Unremarkable Neurological: Unremarkable Lymphatics: Unremarkable <Divina Agarwal Aurelio - Last Filed: 06/20/24 15:03> Physical Examination - Physical Exam General: Alert, In no apparent distress, Oriented x3 HEENT: Atraumatic, Normocephalic Neck: Supple Respiratory: Clear to auscultation bilaterally, Normal air movement Cardiovascular: No edema, Normal pulses, Regular rate/rhythm Capillary refill: <2 Seconds Gastrointestinal: Tenderness (Negative Canales's) Musculoskeletal: No clubbing, No swelling Integumentary: No rashes, No breakdown Neurological: Normal speech, Normal tone, Normal affect Lymphatics: No axilla or inguinal lymphadenopathy External genitalia: Deferred Rectal: Deferred - Studies Laboratory Data (last 24 hrs) 06/20/24 06/20/24 10:11 10:11 WBC 14.90 H Hgb 14.3 Hct 43.5 Plt Count 203 Sodium 138 Potassium 3.5 BUN 11 Creatinine 0.87 Glucose 125 H Total Bilirubin 1.0 AST 24 ALT 40 Alkaline Phosphatase 96 Lipase 32 <Divina Agarwal - Last Filed: 06/20/24 15:03> - Studies Laboratory Data (last 24 hrs) 06/20/24 06/20/24 10:11 10:11 WBC 14.90 H Hgb 14.3 Hct 43.5 Plt Count 203 Sodium 138 Potassium 3.5 BUN 11 Creatinine 0.87 Glucose 125 H Total Bilirubin 1.0 AST 24 ALT 40 Alkaline Phosphatase 96 Lipase 32 <Shira Jimeneztapanamira Rosenda - Last Filed: 06/20/24 18:31> Assessment and Plan - Plan Acute abdominal pain 2nd to Diverticulitis, cholelithiasis Aggressive IV hydration IV antibiotic Outpatient colonoscopy Pain control Monitor for perforation Surgery consult - Dr. Bowles CT abdomen and pelvis reviewed Discharge Plan: Home Plan to discharge in: 48 Hours - Advance Directives Does patient have a Living Will: No Does patient have a Durable POA for Healthcare: No - Code Status/Comfort Care Code Status Assessed: Yes Code Status: Full Code Critical Care: No <AgarwalDivina Aurelio - Last Filed: 06/20/24 15:03> - Plan Pt seen and examined. I agree with the note by the CONDUIT WORKER. Pt is a 49 yo male with past medical history of diabetes, fatty liver, and status post gastric sleeve who presents with left lower quadrant abdominal pain. On admission, lab studies show wbc 14.9, Hgb 14.3, K .5, Cr 0.[address] abd shows a 5 cm segment of the colon in the hepatic flexure region with moderate surrounding inflammation and wall thickening without abscess. This suggests acute diverticulitis. Abdominal ultrasound shows cholelithiasis without sonographic evidence of acute cholecystitis. At bedside, pt is in NAD. A/P: Acute cholecystitis: Will continue iv levaquin / flagyl and consulted Gen surgeon. Acute diverticulitis: Will continue levaquin/ flagyl and f/u blood cx. DM II: Will continue accuchek, SSI and ADA diet DVT ppx: SCD Code: full <Chano Jimenez - Last Filed: 06/20/24 18:31>
[2024-06-20] MEDS ORDERED: HYDROMORPHONE HCL 0.5 MG/0.5 ML INJ IV PRN (13:00)
[2024-06-20] MEDS ORDERED: Levofloxacin500mg IV 500 MG/100 ML BAG IV SCH (13:00)
[2024-06-20] MEDS: NA CHLORIDE 0.9% 1,000 ML IV SCH (14:51)
[2024-06-20 15:21] VITALS: BMI 32.5
[2024-06-20] MEDS: HYDROMORPHONE HCL 1 MG/ML INJ IV PRN (15:30)
[2024-06-20] MEDS: METRONIDAZOLE 500mg IVPB 500 MG/100 ML BAG IV SCH (17:03)
[2024-06-20] MEDS: ONDANSETRON 4 MG/2 ML VIAL IV PRN (17:03)
[2024-06-21] MEDS: PROMETHAZINE INJ 25 MG/ML AMP IV ONE (02:54)
[2024-06-21 06:42] LABS: Albumin 2.7 g/dL (3.4-5.0); Albumin/Globulin Ratio 0.7 (1.1-1.8); Anion Gap 10.9 mEq/L (5.0-15.0); Bilirubin Total 0.8 mg/dL (0.2-1.0); Globulin 3.9 g/dL (2.3-3.5); Magnesium 1.8 mg/dL (1.6-2.4); Potassium 3.9 mEq/L (3.5-5.1); Protein, Total 6.6 g/dL (6.4-8.2)
[2024-06-21 07:39] LABS: Absolute Basophils 0.1 K/uL (0-0.5); Absolute Eosinophils 0.1 K/uL (0-0.5); Absolute Lymphocytes (CBC) 2.3 K/uL (0.7-4.9); Absolute Monocytes 0.7 K/uL (0.1-1.3); Absolute Neutrophil 6.7 K/uL (1.8-8.0); Basophils % 0.9 % (0-1.3); Eosinophils % 0.8 % (0-4.4); Hematocrit 37.1 % (36.0-45.0); Lymphocytes % 23.1 % (15.3-44.8); MCH 26.9 pg (27.0-35.0); MCHC 32.4 g/dL (32.0-36.0); MPV 9.1 fL (7.6-11.3); Monocytes % 6.8 % (3.3-12.3); Neutrophils % 68.4 % (41.7-73.7); Platelets 170 thou/uL (152-406); RBC Red Blood Cell Count 4.46 M/uL (3.86-4.86); Red Cell Distribution Width 11.9 % (12.1-15.2)
[2024-06-21] MEDS: KCL 20 MEQ/100 mL IVPB 20 MEQ/100 ML BAG IV SCH (07:52)
[2024-06-21] MEDS: ACETAMINOPHEN 325 MG TABLET PO PRN (08:42)
[2024-06-21] MEDS: MAGNESIUM SULFATE 1 gm IVPB 1 GM/100 ML BAG IV SCH (08:42)
--- NOTE | 2024-06-21 09:41 | P.PN ---
Subjective Date of Service: 06/21/24 Chief Complaint: Diverticulitis, cholelithiasis Pt is resting comfortably in bed. She still has RUQ abd pain. Pt is NPO. She complains of headache. Waiting for Gen surgeon's evaluation. No other complaints. Review of Systems General: Unremarkable Eyes: Unremarkable ENT: Unremarkable Respiratory: Unremarkable Cardiovascular: Unremarkable Gastrointestinal: Abdominal Pain Genitourinary: Unremarkable Musculoskeletal: Unremarkable Integumentary: Unremarkable Neurological: Unremarkable Lymphatics: Unremarkable Physical Examination - Vital Signs Temperature: 98.5 F Blood Pressure: 111/73 Pulse: 85 Respirations: 16 Pulse Ox (%): 94 - Physical Exam General: Alert, In no apparent distress, Oriented x3 HEENT: Atraumatic, Normocephalic, PERRLA Neck: Supple, 2+ carotid pulse no bruit, JVD not distended Respiratory: Clear to auscultation bilaterally, Normal air movement Cardiovascular: No edema, Normal pulses, Regular rate/rhythm, Normal S1 S2 Capillary refill: <2 Seconds Gastrointestinal: Normal bowel sounds, Soft and benign, Non-distended Musculoskeletal: No clubbing, No swelling, No contractures Integumentary: No rashes, No breakdown, No significant lesion Neurological: Normal gait, Normal speech, Normal strength at 5/5 x4 extr, Normal tone Lymphatics: No axilla or inguinal lymphadenopathy - Studies Laboratory Data (last 24 hrs) 06/20/24 06/20/24 10:11 10:11 WBC 14.90 H Hgb 14.3 Hct 43.5 Plt Count 203 Sodium 138 Potassium 3.5 BUN 11 Creatinine 0.87 Glucose 125 H Total Bilirubin 1.0 AST 24 ALT 40 Alkaline Phosphatase 96 Lipase 32 Assessment And Plan - Plan Acute cholecystitis: Will continue iv levaquin / flagyl. Consulted Gen surgeon. WBC is trending down 9.8 <- 14.9. Acute diverticulitis: Will continue levaquin/ flagyl and f/u blood cx. DM II: Will continue accuchek, SSI and ADA diet DVT ppx: SCD Code: full Dispo: Pending hospital course
[2024-06-21] MEDS: PROMETHAZINE 25 MG TABLET PO PRN (11:16)
--- NOTE | 2024-06-21 14:16 | EKG ---
Test Date: 2024-06-20 Test Time: 10:58:11 Guest Relations Officer: HARMAN MEASUREMENT RESULTS: Intervals: Rate: 89 [place]: 142 QRSD: 74 QT: 344 QTc: 418 [place]: P: 19 [place]: 142 QRS: 26 T: 15 INTERPRETIVE STATEMENTS: Normal sinus rhythm Normal ECG No previous ECG available for comparison Electronically Signed On 06-21-24 14:12:44 CDT by Surinder Heredia
[2024-06-21] MEDS: CALCIUM CARBONATE CHEW 500MG TAB PO PRN (16:02)
[2024-06-21] MEDS: HYDROCODONE/APAP 5/325 MG TAB PO PRN (19:40)
[2024-06-22 06:32] LABS: Absolute Basophils 0.1 K/uL (0-0.5); Absolute Eosinophils 0.3 K/uL (0-0.5); Absolute Lymphocytes (CBC) 2.7 K/uL (0.7-4.9); Absolute Monocytes 0.6 K/uL (0.1-1.3); Absolute Neutrophil 4.8 K/uL (1.8-8.0); Eosinophils % 3.4 % (0-4.4); Hematocrit 36.4 % (36.0-45.0); Hemoglobin 11.7 g/dL (12.0-15.0); MCH 26.8 pg (27.0-35.0); MCHC 32.3 g/dL (32.0-36.0); MCV 83.1 fL (80-100); MPV 9.2 fL (7.6-11.3); Neutrophils % 56.6 % (41.7-73.7); Nucleated Red Blood Cells % 0.3 % (0-0); Platelets 164 thou/uL (152-406); RBC Red Blood Cell Count 4.38 M/uL (3.86-4.86); Red Cell Distribution Width 11.9 % (12.1-15.2)
[2024-06-22 06:53] LABS: Albumin 2.5 g/dL (3.4-5.0); Albumin/Globulin Ratio 0.6 (1.1-1.8); Bilirubin Total 0.6 mg/dL (0.2-1.0); Globulin 4.2 g/dL (2.3-3.5); Protein, Total 6.7 g/dL (6.4-8.2)
[2024-06-22 06:55] LABS: Magnesium 1.9 mg/dL (1.6-2.4)
[2024-06-22 08:51] LABS: Blood Morphology Comment NOT SEEN (NOT SEEN); Platelet Estimate ADEQ; White Blood Cell Scan OK (OK)
[2024-06-22 09:20] VITALS: O2SAT 96
--- NOTE | 2024-06-22 13:13 | P.PN ---
Date of Service: 06/22/24 Subjective: slept ok, would like a diet, last pain medication before bed, "starting to hurt again" Review of Systems 10-point ROS is otherwise unremarkable General: Unremarkable Eyes: Unremarkable ENT: Unremarkable Respiratory: Unremarkable Cardiovascular: Unremarkable Gastrointestinal: Abdominal Pain Genitourinary: Unremarkable Musculoskeletal: Unremarkable Neurological: Unremarkable Lymphatics: Unremarkable Vitals: Reviewed Physical Examination - Physical Exam General: Alert, In no apparent distress, Oriented x3 HEENT: Atraumatic, Normocephalic Neck: Supple Respiratory: Clear to auscultation bilaterally, Normal air movement Cardiovascular: No edema, Normal pulses, Regular rate/rhythm Capillary refill: <2 Seconds Gastrointestinal: Tenderness (Negative Canales's) Musculoskeletal: No clubbing, No swelling Integumentary: No rashes, No breakdown Neurological: Normal speech, Normal tone, Normal affect Lymphatics: No axilla or inguinal lymphadenopathy External genitalia: Deferred Rectal: Deferred Assessment and Plan - Plan Acute abdominal pain 2nd to Diverticulitis, cholelithiasis Aggressive IV hydration IV antibiotic Outpatient colonoscopy Pain control Monitor for perforation Surgery consult - Dr. Castro - following CT abdomen and pelvis reviewed Discharge Plan: Home Plan to discharge in: 48 Hours - Advance Directives Does patient have a Living Will: No Does patient have a Durable POA for Healthcare: No - Code Status/Comfort Care Code Status Assessed: Yes Code Status: Full Code Critical Care: No <Divina Agarwal - Last Filed: 06/22/24 13:10> Patient was seen and examined. Events of the last 24 hours have been noted. Spoke with with DEREK regarding patient's clinical picture after evaluating and examining the patient independently. I performed a substantial part of the MDM during this patient's care today. I personally made or approved the documented management plan and acknowledge its risk of complications. I agree with the findings and documentation provided in the DEREK's notes. Patient's clinical symptoms improved. Patient feeling much better. Doing well on IV antibiotics. Advance diet as tolerated and repeat imaging in the morning. If imaging has improved and anticipate discharge tomorrow morning. <Tanya Pierce - Last Filed: 06/22/24 17:33>
[2024-06-23 07:29] LABS: Absolute Basophils 0.1 K/uL (0-0.5); Absolute Eosinophils 0.2 K/uL (0-0.5); Absolute Lymphocytes (CBC) 1.8 K/uL (0.7-4.9); Absolute Monocytes 0.5 K/uL (0.1-1.3); Absolute Neutrophil 4.3 K/uL (1.8-8.0); Basophils % 0.8 % (0-1.3); Eosinophils % 3.5 % (0-4.4); Hematocrit 38.4 % (36.0-45.0); Hemoglobin 12.7 g/dL (12.0-15.0); Lymphocytes % 26.3 % (15.3-44.8); MCH 27.2 pg (27.0-35.0); MCV 82.2 fL (80-100); MPV 8.2 fL (7.6-11.3); Monocytes % 7.4 % (3.3-12.3); Nucleated Red Blood Cells % 0.2 % (0-0); Platelets 222 thou/uL (152-406); RBC Red Blood Cell Count 4.67 M/uL (3.86-4.86); Red Cell Distribution Width 11.8 % (12.1-15.2)
[2024-06-23 07:49] LABS: Albumin 2.8 g/dL (3.4-5.0); Albumin/Globulin Ratio 0.7 (1.1-1.8); Anion Gap 6.5 mEq/L (5.0-15.0); Bilirubin Total 0.4 mg/dL (0.2-1.0); Globulin 4.2 g/dL (2.3-3.5); Magnesium 1.7 mg/dL (1.6-2.4); Potassium 3.5 mEq/L (3.5-5.1)
--- NOTE | 2024-06-23 09:47 | RAD REPORT ---
EXAMINATION: CT ABDOMEN AND PELVIS WITH CONTRAST CLINICAL INDICATION: diverticulitis TECHNIQUE: CT abdomen and pelvis was performed, after the administration of IV contrast, as per [facility] protocol. Axial, sagittal and coronal reconstructions were obtained. One or more of the following dose reduction techniques were used: Automated exposure control, adjustment of the mA and k V according to patient size, and iterative reconstruction. Unless otherwise specified, incidental findings do not require dedicated imaging follow-up. COMPARISON: 06/20/2024 FINDINGS: LOWER CHEST: Mild linear atelectasis is present in both posterior lung bases. Postsurgical changes ab out the stomach. LIVER: Significant fatty liver with hepatomegaly present. No focal lesion or biliary dilitation. Cho lelithiasis. SPLEEN: Normal size. No focal lesion. PANCREAS: No mass, ductal dilation, or hua-pancreatic fluid. ADRENALS: Normal; no mass. KIDNEYS: Normal size and contour. No hydronephrosis. GASTROINTESTINAL TRACT: The degree of inflammation involving the ascending colon near the hepatic fle xure has moderately improved. Prominent diverticula with surrounding inflammation is again seen however the inflammation is now moderate in severity. No abscess. APPENDIX: Normal appendix. LYMPH NODES: No lymphadenopathy. MUSCULOSKELETAL: No acute or suspicious osseous abnormality. ADDITIONAL FINDINGS: None. IMPRESSION: Moderate inflammation is seen involving a portion of the ascending colon near the hepatic flexure. Th is represents a moderate improvement since the comparison study but not complete resolution. Follow-up colonoscopy after appropriate therapy remains a recommendation. Cholelithiasis. Significant fatty liver.
[2024-06-23 11:49] VITALS: BP 137/82; TEMP 97.5
--- NOTE | 2024-06-23 14:38 | P.DS ---
Admission Date: 06/20/24 Discharge Date: 06/23/24 Disposition: ROUTINE DISCHARGE Discharge Condition: GOOD Reason for Admission: Diverticulitis, cholelithiasis Consultations: Dr. Castro Brief History of Present Illness: Ms. Dixon is a 49-year-old female with past medical history of diabetes and fatty liver. Status post gastric sleeve she is not taking any medicines and her blood sugar today is 125. She states she does usually have a bowel movement about 3 times daily and she has not had 1 since yesterday 06/19/2024. She denies nausea or vomiting but reports generalized abdominal pain with worsening over the left lower quadrant. CT imaging in the emergency department: CT abdomen and pelvis with contrast impression: "5 cm segment of the colon in the hepatic flexure region shows moderate surrounding inflammation and wall thickening without abscess. There is a prominent diverticulum noted in this location projecting medially. Findings may represent a focal acute diverticulitis. Given that kacy centeno can have a similar appearance, after appropriate therapy, colonoscopy would be recommended to directly visualize this region. Cholelithiasis. Moderate fatty liver. Ultrasound evaluation shows cholelithiasis without sonographic evidence of acute cholecystitis. Only abnormal laboratory finding is a white count of 14.9 with no shift. Ms. Dixon will be admitted for IV hydration, IV antibiotics, and consultation with Dr. Castro. Hospital Course: Ms. Dixon did well over the course of her hospitalization. Her pain slowly improved. She tolerated a clear liquid diet and is advancing to a soft diet. She will follow-up with Dr. Castro in 1 to 2 weeks and will have a colonoscopy to further evaluate her symptoms and CT findings. We were available to answer a ny questions, she voiced understanding of discharge plan and importance of follow up testing/maintenance. Vital Signs/Physical Exam: Temp Pulse Resp BP Pulse Ox 97.5 F 78 16 137/82 94 06/23/24 11:45 06/23/24 11:45 06/23/24 11:45 06/23/24 11:45 06/23/24 11:45 General: Alert, In no apparent distress, Oriented x3 HEENT: Atraumatic, Normocephalic, PERRLA Respiratory: Clear to auscultation bilaterally, Normal air movement Cardiovascular: Normal pulses, Regular rate/rhythm, Normal S1 S2 Capillary refill: <2 Seconds Gastrointestinal: Normal bowel sounds, No ascites, No tenderness, No guarding Musculoskeletal: No clubbing Integumentary: No rashes, No breakdown Neurological: Normal speech, Normal tone, Normal affect Lymphatics: No axilla or inguinal lymphadenopathy External genitalia: Deferred Rectal: Deferred Laboratory Data at Discharge: WBC 7.00 thou/uL (4.3-10.9) 06/23/24 07:14 Hgb 12.7 g/dL (12.0-15.0) D 06/23/24 07:14 Hct 38.4 % (36.0-45.0) 06/23/24 07:14 Plt Count 222 thou/uL (152-406) D 06/23/24 07:14 Sodium 140 mEq/L (136-145) 06/23/24 07:14 Potassium 3.5 mEq/L (3.5-5.1) D 06/23/24 07:14 BUN 6 mg/dL (7-18) L 06/23/24 07:14 Creatinine 0.76 mg/dL (0.55-1.02) 06/23/24 07:14 Glucose 130 mg/dL (74-106) H 06/23/24 07:14 Magnesium 1.7 mg/dL (1.6-2.4) 06/23/24 07:14 Total Bilirubin 0.4 mg/dL (0.2-1.0) 06/23/24 07:14 AST 16 U/L (15-37) 06/23/24 07:14 ALT 24 U/L (13-56) 06/23/24 07:14 Alkaline Phosphatase 66 U/L (45-117) 06/23/24 07:14 Triglycerides 40 mg/dL (<150) 06/21/24 04:54 Cholesterol 102 mg/dL (<200) 06/21/24 04:54 HDL Cholesterol 42 mg/dL (40-60) 06/21/24 04:54 Cholesterol/HDL Ratio 2.43 06/21/24 04:54 Lipase 32 U/L (13-75) 06/20/24 10:11 Home Medications: Promethazine Tab [Phenergan*] 25 mg PO Q6H PRN #30 tab 06/23/24 levoFLOXacin [Levaquin] 500 mg PO DAILY #7 tab 06/23/24 metroNIDAZOLE [Flagyl] 500 mg PO Q8H #20 tab 06/23/24 New Medications: metroNIDAZOLE [Flagyl] 500 mg PO Q8H #20 tab levoFLOXacin [Levaquin] 500 mg PO DAILY #7 tab Promethazine Tab [Phenergan*] 25 mg PO Q6H PRN #30 tab PRN Reason: Nausea / Vomiting Physician Discharge Instructions: -DC IV and DC home -Follow-up with PCP in 1 to 2 weeks -Follow-up with Surgery in 1 to 2 weeks -Please call Dr. Pierce at [phone] if any questions regarding hospital stay -Please call nursing station at [phone] if any nursing or medication questions -Return to the emergency room if symptoms worsen Diet: low residu Activity: Fall precautions Followup: Grant Barraza MD [Primary Care Provider] - 1-2 Weeks (call for appointment.) Mac Castro MD [ACTIVE - CAN ADMIT] -
== END 2024-06-23 15:00 | disposition home or self-care (01) | DRG 445 ==
LOC: ER 09:11 → ERHOLD 13:00 → 4TH 14:13
PROVIDERS: ADMIT Hospitalist; ATTEND Hospitalist
DX: K80.80 Other cholelithiasis without obstruction (principal); K57.32 Diverticulitis of large intestine without perforation or abscess without bleeding; E11.9 Type 2 diabetes mellitus without complications; K76.0 Fatty (change of) liver, not elsewhere classified; D72.829 Elevated white blood cell count, unspecified; Z88.0 Allergy status to penicillin; Z98.84 Bariatric surgery status; Z79.899 Other long term (current) drug therapy; Z90.710 Acquired absence of both cervix and uterus
CPT/HCPCS: 36415; 74177; 76705; 80053; 80061; 81003; 83605; 83690; 83735; 84484; 85025; 87040; 93005; 96361; 96365; 96367; 96368; 96375; 99285; J0696; J1171; J2405; J3475; J3480; J7030; Q0169; Q9967